=== PATIENT | male | born 1960 | race Caucasian/White ===

== ENCOUNTER → 2019-11-30 17:09 | Outpatient (CLI) | payer OTHER, SELFPAY ==
[2019-11-24 09:11] VITALS: BMI 79.0
--- NOTE | 2019-11-30 17:30 | RAD_ITS ---
HISTORY: large laceration to right lower anterior leg, cellulitis ADDITIONAL HISTORY: None provided. EXAMINATION/TECHNIQUE: XR Tibia/Fibula 2 Views Right Number of images including paperwork: 4 COMPARISON: None FINDINGS: BONES: No acute fracture. Calcaneal enthesophytes. JOINTS: No subluxation. Mild degenerative changes of the knee and ankle. SOFT TISSUES: No distinct foreign body. Soft tissue irregularity involving the anterior mid leg compatible with the provided history of large laceration. RAD/Tibia & Fibula 2 Views IMPRESSION: No acute osseous abnormality. Soft tissue injury. at [id number] Reported and signed by: Brielle Ortiz MD Electronically Signed: Brielel Ortiz MD at 3:37 EDT Tel , Service support ,
[2019-11-30 17:48] LABS: Absolute Neutrophil Count 4.7 X10^3/uL (2.0-7.7); Basophil# 0.08 X10^3/uL; Basophil% 0.9 % (0-1); Eosinophils% 2.3 % (0-5); Hematocrit 47.3 % (40-54); Hemoglobin 16.1 g/dL (13.0-16.5); Lymphocyte % 35.5 % (19-41); Mean Corpuscular Hgb 30.6 pg (27.0-32.0); Mean Corpuscular Volume 89.9 fL (80-94); Mean Platelet Vol. 11.9 fl (6.2-12.0); Monocyte# 0.64 X10^3/uL; Monocyte% 7.3 % (0-10); NRBC Flagged by Analyzer 0 % (0-5); Neutrophil # 4.69 X10^3/uL (2.7-7.7); Neutrophil % 53.8 % (47-70); Platelet Count 225 K/mm3 (150-450); RBC Distribution Width SD 42.3 fl (35.1-43.9); Red Blood Count 5.26 M/mm3 (4.6-6.2); White Blood Count 8.7 K/mm3 (4.4-11.0)
[2019-11-30 17:49] LABS: Erythrocyte Sedimentation Rate 7 mm/hr (0-20)
[2019-11-30 18:52] LABS: ALB/GLOB Ratio 1.1 RATIO (0.9-2.4); AST(SGOT) 42 U/L (15-37); Alanine Aminotransfer ALT/SGPT 81 U/L (16-61); Alkaline Phosphatase 76 U/L (45-117); Anion Gap 8 (5-15); BUN 20 mg/dL (7-18); BUN/Creat Ratio 20.2 RATIO (10-20); CRP < 2.90 mg/L (0.0-3.0); Calcium,Total 9.5 mg/dL (8.5-10.1); Chloride 105 mmol/L (98-107); Creatinine, Serum 0.99 mg/dL (0.70-1.30); EST Glomerular Filtration Rate 83 mL/min (>60); Est Glom Filt Rate - Afr Amer 100 mL/min (>60); Globulin 3.7 g/dL (2.2-4.2); Glucose 166 mg/dL (74-106); Potassium 3.7 mmol/L (3.5-5.1); Protein, Total 7.7 g/dL (6.4-8.2); Sodium Level 138 mmol/L (136-145)
[2019-11-30 19:52] LABS: Prealbumin 45.5 mg/dL (20.0-40.0)
== END ==
PROVIDERS: Referring Provider Nurse Practitioner Family; Visit Provider Nurse Practitioner Family
DX: L03.115 Cellulitis of right lower limb (principal); S81.811A Laceration without foreign body, right lower leg, initial encounter; X58.XXXA Exposure to other specified factors, initial encounter; Y93.9 Activity, unspecified; Y92.9 Unspecified place or not applicable; Y99.9 Unspecified external cause status
CPT/HCPCS: 36415; 73590; 80053; 84134; 85025; 85652; 86140

== ENCOUNTER 2019-12-15 11:30 | Outpatient (RCR) | payer OTHER, SELFPAY ==
[2019-11-24 09:11] VITALS: BP 150/94; PULSE 82; RESP 16; TEMP 36.1; BMI 79.0
--- NOTE | 2019-11-24 12:34 | PCM.WC.HP ---
(1) Laceration of right lower leg Status: Acute Current Visit: Yes Code(s): S81.811A - Laceration without foreign body, right lower leg, initial encounter (2) Contusion of right lower leg Status: Acute Current Visit: Yes Code(s): S80.11XA - Contusion of right lower leg, initial encounter (3) Cellulitis of right lower leg Status: Acute Current Visit: Yes Code(s): L03.115 - Cellulitis of right lower limb History of Present Illness Date of Service: 11/24/19 Chief Complaint: right lower leg wound History of Wound: The patient presents 11/24/2019 for evaluation and treatment of a right lower leg wound. This is a workers comp evaluation. The patient is employed at [employer]. On 11/02/2019, the patient was stepping to a platform while at work when he fell and suffered a laceration to his right lower leg. He was evaluated at [facility], and the laceration was approximated with kavita. He subsequently was seen at [facility] on 11/06/2019 and was placed on light work duty. At his follow-up appointment with [facility] on 11/14/2019, his kavita were removed. Dehiscence of the wound with surrounding erythema was noted, as well as swelling, tenderness and warmth at the wound site. He was started on a 10-day course of Keflex, and wound cultures were obtained. Aerobic cultures were positive for E. coli and he was placed on a course of ampicillin, which he is currently taking. Anaerobic cultures were negative. The patient continues to work his position at [employer]. His job entails prolonged periods of standing. He continues to have redness, warmth, and tenderness of his right lower leg wound and surrounding area. He reports a small amount of serosanguineous drainage from his right lower leg wound. He denies any foul-smelling or purulent drainage from his wound. He has been cleansing the wound and surrounding area daily with soap and water and covering with clean gauze and Coban wrap. The patient denies any fever, chills, nausea, vomiting, or diarrhea. Past Medical History Allergies/Adverse Reactions: Allergies No Known Allergies Allergy (Verified 11/24/19 09:23) Smoking Status: Never smoker Review of Systems Constitutional: Denies: Chills, Fever, Malaise Eyes: Denies: Vision Change HEENT: Denies: Difficulty Hearing, Difficulty Swallowing, Head Aches Cardiovascular: Denies: Chest Pain Respiratory: Denies: Cough, Shortness of Breath, Wheezing Gastrointestinal: Denies: Abdominal Pain, Diarrhea, Nausea, Vomiting Genitourinary: Denies: Dysuria Musculoskeletal: Reports: Leg Pain - At lower leg wound site and surrounding area Skin: Reports: Wounds - Right lower leg wound Neurological: Denies: Numbness, Tingling Hematologic/ Lymphatic: Denies: Easy Bruising, Easy Bleeding, Hx of blood clot - Physical Exam Vital Signs Temp Pulse Resp BP 97 F L 82 16 150/94 H 11/24/19 09:11 11/24/19 09:11 11/24/19 09:11 11/24/19 09:11 General: Alert, Oriented x3, Cooperative, Well developed, Well nourished HEENT: Atraumatic, Normocephalic Oral: Moist Mucosa Neck: Supple, Trachea Midline Lungs: Clear to auscultation, Normal air movement, No rhonchi, No wheeze, No rales Cardiovascular: Regular rate, Regular Rhythm Abdomen: Bowel Sounds Present, Soft Extremities: No clubbing, No cyanosis, Capillary Refill Less than 3 Seconds, Edema - Mild edema of right lower leg and periwound area, Peripheral Pulses Normal Skin: Ulcer/ Wound - Right lower leg wound with subcutaneous layer exposed. There is a moderate to large amount of slough and devitalized tissue present. Coagulated blood expressed from the wound on light palpation. There is undermining present: See measurements below. No tunneling or probing to bone. No purulent or malodorous drainage. There is moderate hailey-wound erythema and mild swelling of the right lower leg. The wound and periwound area are very tender to palpation and debridement., - - There is some absence of hair noted on bilateral lower extremities below mid calf area. Wound Measurements and Assessment WC - Nurse 1 - General Ulcer Measurement Start: 11/24/19 09:10 Freq: Status: Active Protocol: Activity Type Activity Date Activity User E-Sign Co-Sign Detail Recorded Client Recorded Date Recorded By Document 11/24/19 09:11 [facility] [id number] 11/24/19 09:21 [facility] 11/24/19 09:11 Wound Center Nurse 1 [Ulcer Assessment] #1- R BRADFORD POST TRAUMA -Combined with other wound No -Current Size (cm) - Length 5.6 -Current Size (cm) - Width 2.5 -Current Size (cm) - Depth 0.6 -Total Square Cm 14.00 -Date of Last Picture (Recall this 11/24/19 field) -Photo Taken Yes -Epithelialization None Present -Tunneling No -Undermining/Tunneling No -Circular Undermining No -Exudate Type Serosanguineous -Wound Margin Distinct, Outline Attached -Granulation Amt Small (1-33%) -Granulation Quality Red -Slough/Fibrin Yes -Necrosis Amt Large (67-100%) -Necrotic Tissue Type Adherent Slough -Texture (Hailey-wound Skin Appearance) Assessed, Localized Edema ,Scarring -Moisture (Hailey-wound Skin Appearance Assessed ) -Color (Hailey-wound Skin Appearance) Assessed, Erythema -Temperature (Hailey-wound Skin No Abnormality Appearance) (Pt Warm) -Tenderness on Palpation (Hailey-wound Yes Skin Appearance) -Ulcer Cleansing Rinsed/ Irrigated with Saline -Foul Odor after Cleansing No -Anesthetic Used 4% Lidocaine Solution [Edema Assessment] -Lower Limb Edema Present Yes -Right Calf (cm) 42 -Right Ankle (cm) 24 -Left Calf (cm) 41.8 -Left Ankle (cm) 23 WC - Nurse 2 - General Ulcer CM Notes Start: 11/24/19 09:10 Freq: Status: Active Protocol: Activity Type Activity Date Activity User E-Sign Co-Sign Detail Recorded Client Recorded Date Recorded By Document 11/24/19 09:56 PL [id number] 11/24/19 11:06 PL 11/24/19 09:56 Wound Center Nurse 2 [Procedure/Treatment] #1- R BRADFORD POST TRAUMA -Time 10:00 -Correct Patient Yes -Correct Side, Site, Position Yes -Correct Procedure Yes -Procedure Performed Yes -Type of Procedure Debridement -Clinical Debridement Subcutaneous -Tissue Removed Subcutaneous -Post Debridement (cm) - Length 5.9 -Post Debridement (cm) - Width 2.6 -Post Debridement (cm) - Depth 0.6 -Total Square (Post) (cm) 15.34 -Area of Debridement (cm) - Length 5.9 -Area of Debridement (cm) - Width 2.6 -Total Square (Area) (cm) 15.34 -Tunneling No -Undermining/Tunneling Yes -Undermining/Tunneling Starts (O' 2 clock) -Undermining/Tunneling Ends (O'clock) 3 -Maximum Distance (cm) 1.9 -Undermining/Tunneling Starts #2 (O' 3 clock) -Undermining/Tunneling Ends #2 (O' 5 clock) -Maximum Distance #2 (cm) 1.7 -Circular Undermining No -Wound/Ulcer Outcome Not Healed -Ulcer Cleansing Rinsed/ Irrigated with Saline -Foul Odor after Cleansing No -Bioengineered Tissue No -Debridement - Subq, 1st 20sq cm Yes [See Physician Procedure note for Specifics] Pain Scale: 0-10 Numeric [Pain] -Is Patient Pain Free? Yes - Nurse 3 - General Ulcer D/C NN Start: 11/24/19 09:10 Freq: Status: Active Protocol: Activity Type Activity Date Activity User E-Sign Co-Sign Detail Recorded Client Recorded Date Recorded By Document 11/24/19 10:45 [facility] [id number] 11/24/19 10:46 [facility] 11/24/19 10:45 Wound Care Nurse 3 [Wound Dressing] #1- R BRADFORD POST TRAUMA -Ulcer Cleansing Rinsed/ Irrigated with Saline -Foul Odor after Cleansing No -Primary Dressing Applied Other -Other Dressing HYDROGEL TODAY. PT TO P/U SANTYL -Primary Dressing Covered/Secured Dry Gauze & with Roll Gauze, Secured with Tape [Compression Applied] Right -Compression Wrap Surepress ($) [Post Procedure Tolerated] -Treatment Response Procedure Tolerated Well Pain Scale: 0-10 Numeric [Pain] -Is Patient Pain Free? Yes - Visit Discharge [Visit Discharge Information] -Discharge Condition Stable -Ambulatory Status Ambulatory -Transportation Private Auto Musculoskeletal: No Muscle Wasting, Tenderness - Viraj to palpation/debridement Neurological: Cranial nerves II-XII grossly intact Psych/Mental Status: Normal Affect, Appropriate Debridement Note Post-Debridement Measurements/Treatment - Nurse 2 - General Ulcer CM Notes Start: 11/24/19 09:10 Freq: Status: Active Protocol: Activity Type Activity Date Activity User E-Sign Co-Sign Detail Recorded Client Recorded Date Recorded By Document 11/24/19 09:56 PL [id number] 11/24/19 11:06 11/24/19 09:56 Wound Center Nurse 2 #1- R BRADFORD [employer] TRAUMA -Time 10:00 -Correct Patient Yes -Correct Side, Site, Position Yes -Correct Procedure Yes -Procedure Performed Yes -Type of Procedure Debridement -Clinical Debridement Subcutaneous -Tissue Removed Subcutaneous -Post Debridement (cm) - Length 5.9 -Post Debridement (cm) - Width 2.6 -Post Debridement (cm) - Depth 0.6 -Total Square (Post) (cm) 15.34 -Area of Debridement (cm) - Length 5.9 -Area of Debridement (cm) - Width 2.6 -Total Square (Area) (cm) 15.34 -Tunneling No -Undermining/Tunneling Yes -Undermining/Tunneling Starts (O'clock 2 ) -Undermining/Tunneling Ends (O'clock) 3 -Maximum Distance (cm) 1.9 -Undermining/Tunneling Starts #2 (O' 3 clock) -Undermining/Tunneling Ends #2 (O' 5 clock) -Maximum Distance #2 (cm) 1.7 -Circular Undermining No -Wound/Ulcer Outcome Not Healed -Ulcer Cleansing Rinsed/ Irrigated with Saline -Foul Odor after Cleansing No -Bioengineered Tissue No -Debridement - Subq, 1st 20sq cm Yes Pain Scale: 0-10 Numeric Is Patient Pain Free? Yes - Nurse 3 - General Ulcer D/C NN Start: 11/24/19 09:10 Freq: Status: Active Protocol: Activity Type Activity Date Activity User E-Sign Co-Sign Detail Recorded Client Recorded Date Recorded By Document 11/24/19 10:45 [facility] [id number] 11/24/19 10:46 [facility] 11/24/19 10:45 Wound Care Nurse 3 #1- R BRADFORD POST TRAUMA -Ulcer Cleansing Rinsed/ Irrigated with Saline -Foul Odor after Cleansing No -Primary Dressing Applied Other -Other Dressing HYDROGEL TODAY. PT TO P/U SANTYL -Primary Dressing Covered/Secured with Dry Gauze & Roll Gauze, Secured with Tape Right -Compression Wrap Surepress ($) Treatment Response Procedure Tolerated Well Pain Scale: 0-10 Numeric Is Patient Pain Free? Yes WC - Visit Discharge Discharge Condition Stable Ambulatory Status Ambulatory Transportation Private Auto Wound debrided: Right lower leg wound Laterality: Right Type of Debridement: Excisional debridement Anesthesia Used: 4% Lidocaine Solution, 5% Lidocaine Gel Depth: in the subcutaneous layer Percentage of wound debrided: 100 Instrument Used: 7mm curette Tissue Removed: Slough and devitalized tissue Severity: Fat Layer Exposed Amount of bleeding with debridement: Mild Bleeding Controlled with: Compression and gauze Patient did not tolerate procedure well Assessment/Plan Active Problems Laceration of right lower leg (Acute) Contusion of right lower leg (Acute) Cellulitis of right lower leg (Acute) Assessment: 1. Laceration of right lower leg. 2. Cellulitis of right lower leg. 3. Contusion of right lower leg Plan: Debridement performed today in clinic. Hydrogel, gauze, and SurePress applied. Santyl was ordered. At home wound-care instructions: Keep wound clean and dry. Wash daily with antibacterial soap and water, rinse and dry thoroughly. Apply a nickel thick layer of Santyl to the wound base daily after cleaning. Cover with gauze. Compression: Apply SurePress to right leg. Off-loading: Avoid prolonged standing or dangling of feet. When seated, elevate feet at or above waist level. Work restrictions will be given for patient to perform seated work only. Diet: Patient encouraged to increase protein and vitamin C intake while taking caution to avoid high carbohydrate and/or sugar intake. Labs/cultures/imaging: Repeat cultures ordered and collected today, given worsening of wound appearance and large amount of slough and devitalized tissue removed from wound bed. Routine baseline labwork ordered. Vascular (venous and arterial) studies ordered to assess for potential causes of delayed wound healing. Right tibia/fibula x-ray ordered. Follow-up: Return to clinic in 1 week for re-evaluation. Return sooner or report to the emergency room should symptoms worsen, or new symptoms arise. The patient was advised to present to the ER if he develops any fever, chills, nausea/vomiting, increasing redness, swelling, pain, or purulent/foul-smelling drainage from his wound. Office Visits / Consults: [id number] OV L4 New [id number]: [id number] Ivy subq tissue 20 sq cm/<
[2019-12-01 10:30] VITALS: BP 172/89; PULSE 92; RESP 16; TEMP 35.9; BMI 79.0
--- NOTE | 2019-12-01 15:55 | PCM.WC.PN ---
(1) Laceration of right lower leg Status: Acute Current Visit: Yes Code(s): S81.811A - Laceration without foreign body, right lower leg, initial encounter (2) Contusion of right lower leg Status: Acute Current Visit: Yes Code(s): S80.11XA - Contusion of right lower leg, initial encounter (3) Cellulitis of right lower leg Status: Acute Current Visit: Yes Code(s): L03.115 - Cellulitis of right lower limb Type of Wound Date of Service: 12/01/19 Chief Complaint: right lower leg wound History of Wound: The patient presents 11/24/2019 for evaluation and treatment of a right lower leg wound. This is a workers comp evaluation. The patient is employed at [employer]. On 11/02/2019, the patient was stepping to a platform while at work when he fell and suffered a laceration to his right lower leg. He was evaluated at [facility], and the laceration was approximated with kavita. He subsequently was seen at [facility] on 11/06/2019 and was placed on light work duty. At his follow-up appointment with [facility] on 11/14/2019, his kavita were removed. Dehiscence of the wound with surrounding erythema was noted, as well as swelling, tenderness and warmth at the wound site. He was started on a 10-day course of Keflex, and wound cultures were obtained. Aerobic cultures were positive for E. coli and he was placed on a course of ampicillin, which he is currently taking. Anaerobic cultures were negative. The patient continues to work his position at [employer]. His job entails prolonged periods of standing. He continues to have redness, warmth, and tenderness of his right lower leg wound and surrounding area. He reports a small amount of serosanguineous drainage from his right lower leg wound. He denies any foul-smelling or purulent drainage from his wound. He has been cleansing the wound and surrounding area daily with soap and water and covering with clean gauze and Coban wrap. The patient denies any fever, chills, nausea, vomiting, or diarrhea. Progress of Wound: Patient's wound has improved in size and appearance since last visit. He reports compliance with the use of Santyl and compression. He also reports compliance with work restrictions which limit him to seated work only. His wound culture was positive for Morganella; ampicillin was discontinued and patient was started on Levaquin 500 mg daily x10 days. He is tolerating this medication well. The patient denies any fever, chills, nausea, vomiting, or diarrhea. Denies any signs of infection, including increasing pain, redness, swelling, or drainage from affected area. Labs collected 11/30/2019 were significant for glucose 166, AST 42, ALT 81, prealbumin 45.5. CBC with differential, ESR, and CRP were normal. Tib-fib x-ray completed 11/30/2019 was negative for acute osseous abnormality. - Physical Exam Vital Signs Temp Pulse Resp BP 96.7 F L 92 16 172/89 H 12/01/19 10:30 12/01/19 10:30 12/01/19 10:30 12/01/19 10:30 General: Alert, Oriented x3, Cooperative, No apparent distress HEENT: Atraumatic, Normocephalic Oral: Moist Mucosa Extremities: No clubbing, No cyanosis, Capillary Refill Less than 3 Seconds, Edema - Trace edema of bilateral lower extremities, Peripheral Pulses Normal Skin: Ulcer/ Wound - Right lower leg wound with subcutaneous layer exposed. There is a small to moderate amount of slough and devitalized tissue present. Undermining has greatly improved, though is still present. No tunneling or probing to bone. No purulent or malodorous drainage. There is mild periwound erythema. Periwound tenderness has improved significantly from last week. Wound Measurements and Assessment WC - Nurse 1 - General Ulcer Measurement Start: 11/24/19 09:10 Freq: Status: Active Protocol: Activity Type Activity Date Activity User E-Sign Co-Sign Detail Recorded Client Recorded Date Recorded By Document 12/01/19 10:30 [id number] 12/01/19 10:47 12/01/19 10:30 Wound Center Nurse 1 [Ulcer Assessment] #1- R LOCO POST TRAUMA -Combined with other wound No -Current Size (cm) - Length 5.6 -Current Size (cm) - Width 2.0 -Current Size (cm) - Depth 0.5 -Total Square Cm 11.20 -Photo Taken No -Epithelialization Small 1-33% -Tunneling No -Undermining/Tunneling No -Circular Undermining No -Exudate Amt Medium -Exudate Type Serosanguineous -Wound Margin Flat & Intact -Granulation Amt Medium (34-66%) -Granulation Quality Red -Slough/Fibrin Yes -Necrosis Amt Medium (34-66%) -Necrotic Tissue Type Adherent Slough -Structure Exposed N/A -Texture (Hailey-wound Skin Appearance) Assessed, Localized Edema -Moisture (Hailey-wound Skin Appearance No Abnormality, ) Dry/Scaly -Color (Hailey-wound Skin Appearance) Assessed -Temperature (Hailey-wound Skin No Abnormality Appearance) (Pt Warm) -Tenderness on Palpation (Hailey-wound No Skin Appearance) -Ulcer Cleansing Rinsed/ Irrigated with Saline -Foul Odor after Cleansing No -Anesthetic Used 4% Lidocaine Solution [Edema Assessment] -Lower Limb Edema Present Yes -Right Calf (cm) 41.0 -Right Ankle (cm) 23.0 EMILY - Nurse 2 - General Ulcer CM Notes Start: 11/24/19 09:10 Freq: Status: Active Protocol: Activity Type Activity Date Activity User E-Sign Co-Sign Detail Recorded Client Recorded Date Recorded By Document 12/01/19 13:46 [email or web address] [id number] 12/01/19 13:52 PL 12/01/19 13:46 Wound Center Nurse 2 [Procedure/Treatment] #1- R LOCO POST TRAUMA -Time 11:19 -Correct Patient Yes -Correct Side, Site, Position Yes -Correct Procedure Yes -Procedure Performed Yes -Type of Procedure Debridement -Clinical Debridement Subcutaneous -Tissue Removed Subcutaneous -Post Debridement (cm) - Length 5.8 -Post Debridement (cm) - Width 2.2 -Post Debridement (cm) - Depth 0.9 -Total Square (Post) (cm) 12.76 -Area of Debridement (cm) - Length 5.8 -Area of Debridement (cm) - Width 2.2 -Total Square (Area) (cm) 12.76 -Tunneling No -Undermining/Tunneling No -Circular Undermining No -Wound/Ulcer Outcome Not Healed -Ulcer Cleansing Rinsed/ Irrigated with Saline -Foul Odor after Cleansing No -Bioengineered Tissue No -Debridement - Subq, 1st 20sq cm No [See Physician Procedure note for Specifics] Pain Scale: 0-10 Numeric [Pain] -Is Patient Pain Free? Yes EMILY - Nurse 3 - General Ulcer D/C NN Start: 09/04/20 09:10 Freq: Status: Active Protocol: Activity Type Activity Date Activity User E-Sign Co-Sign Detail Recorded Client Recorded Date Recorded By Document 12/01/19 12:06 [id number] 12/01/19 12:07 12/01/19 12:06 Wound Care Nurse 3 [Wound Dressing] #1- R LOCO POST TRAUMA -Ulcer Cleansing Rinsed/ Irrigated with Saline -Foul Odor after Cleansing No -Primary Dressing Applied C Hydrogel ($) -Primary Dressing Covered/Secured Dry Gauze & with Roll Gauze, Secured with Tape Pain Scale: 0-10 Numeric [Pain] -Is Patient Pain Free? Yes WC - Visit Discharge [Visit Discharge Information] -Discharge Condition Stable -Ambulatory Status Ambulatory -Transportation Private Auto -Medication Reconcilliation completed Yes & provided to patient/care provider -Clinical Summary of Care Provided Yes Musculoskeletal: Tenderness - To palpation/manipulation of wound Psych/Mental Status: Normal Affect, Appropriate Debridement Note Post-Debridement Measurements/Treatment WC - Nurse 2 - General Ulcer CM Notes Start: 11/24/19 09:10 Freq: Status: Active Protocol: Activity Type Activity Date Activity User E-Sign Co-Sign Detail Recorded Client Recorded Date Recorded By Document 11/24/19 09:56 PL [id number] 11/24/19 11:06 PL Document 12/01/19 13:46 [id number] 12/01/19 13:52 PL 11/24/19 12/01/19 09:56 13:46 Wound Center Nurse 2 #1- R LOCO POST TRAUMA -Time 10:00 11:19 -Correct Patient Yes Yes -Correct Side, Site, Position Yes Yes -Correct Procedure Yes Yes -Procedure Performed Yes Yes -Type of Procedure Debridement Debridement -Clinical Debridement Subcutaneous Subcutaneous -Tissue Removed Subcutaneous Subcutaneous -Post Debridement (cm) - Length 5.9 5.8 -Post Debridement (cm) - Width 2.6 2.2 -Post Debridement (cm) - Depth 0.6 0.9 -Total Square (Post) (cm) 15.34 12.76 -Area of Debridement (cm) - Length 5.9 5.8 -Area of Debridement (cm) - Width 2.6 2.2 -Total Square (Area) (cm) 15.34 12.76 -Tunneling No No -Undermining/Tunneling Yes No -Undermining/Tunneling Starts (O'clock 2 ) -Undermining/Tunneling Ends (O'clock) 3 -Maximum Distance (cm) 1.9 -Undermining/Tunneling Starts #2 (O' 3 clock) -Undermining/Tunneling Ends #2 (O' 5 clock) -Maximum Distance #2 (cm) 1.7 -Circular Undermining No No -Wound/Ulcer Outcome Not Healed Not Healed -Ulcer Cleansing Rinsed/ Rinsed/ Irrigated with Irrigated with Saline Saline -Foul Odor after Cleansing No No -Bioengineered Tissue No No -Debridement - Subq, 1st 20sq cm Yes No Pain Scale: 0-10 Numeric Is Patient Pain Free? Yes Yes - Nurse 3 - General Ulcer D/C NN Start: 11/24/19 09:10 Freq: Status: Active Protocol: Activity Type Activity Date Activity User E-Sign Co-Sign Detail Recorded Client Recorded Date Recorded By Document 11/24/19 10:45 [facility] [id number] 11/24/19 10:46 [facility] Document 12/01/19 12:06 [id number] 12/01/19 12:07 11/24/19 12/01/19 10:45 12:06 Wound Care Nurse 3 #1- R LOCO POST TRAUMA -Ulcer Cleansing Rinsed/ Rinsed/ Irrigated with Irrigated with Saline Saline -Foul Odor after Cleansing No No -Primary Dressing Applied Other C Hydrogel ($) -Other Dressing HYDROGEL TODAY. PT TO P/U SANTYL -Primary Dressing Covered/Secured with Dry Gauze & Dry Gauze & Roll Gauze, Roll Gauze, Secured with Secured with Tape Tape Right -Compression Wrap Surepress ($) Treatment Response Procedure Tolerated Well Pain Scale: 0-10 Numeric Is Patient Pain Free? Yes Yes - Visit Discharge Discharge Condition Stable Stable Ambulatory Status Ambulatory Ambulatory Transportation Private Auto Private Auto Medication Reconcilliation completed & Yes provided to patient/care provider Clinical Summary of Care Provided Yes Wound debrided: Right loco Laterality: Right Type of Debridement: Excisional debridement Anesthesia Used: 5% Lidocaine Gel Depth: in the subcutaneous layer Percentage of wound debrided: 100 Instrument Used: 7mm curette Tissue Removed: Slough and devitalized tissue Severity: Fat Layer Exposed Amount of bleeding with debridement: Mild Bleeding Controlled with: Pressure Patient tolerated procedure well Assessment/Plan Active Problems Laceration of right lower leg (Acute) Contusion of right lower leg (Acute) Cellulitis of right lower leg (Acute) Assessment: 1. Laceration of right lower leg. 2. Cellulitis of right lower leg. 3. Contusion of right lower leg Plan: Debridement performed today in clinic. Hydrogel, gauze, and SurePress applied. Patient has Santyl at home; refills will be sent. At home wound-care instructions: Keep wound clean and dry. Wash daily with antibacterial soap and water, rinse and dry thoroughly. Apply a nickel thick layer of Santyl to the wound base daily after cleaning. Cover with gauze. Compression: Apply SurePress to right leg. Off-loading: Avoid prolonged standing or dangling of feet. When seated, elevate feet at or above waist level. Work restrictions will be continued for patient to perform seated work only. Diet: Patient encouraged to increase protein and vitamin C intake while taking caution to avoid high carbohydrate and/or sugar intake. Labs/cultures/imaging: Wound cultures were positive for Morganella. Ampicillin was discontinued and patient was started on a 10-day course of Levaquin 500 mg daily. He is tolerating this well. Patient instructed to finish antibiotics as prescribed. Lab results reviewed as noted above. Vascular (venous and arterial) studies have not yet been completed. Right tibia/fibula x-ray was negative for acute osseous abnormality. Follow-up: Return to clinic in 2 weeks for re-evaluation. Return sooner or report to the emergency room should symptoms worsen, or new symptoms arise. The patient was advised to present to the ER if he develops any fever, chills, nausea/vomiting, increasing redness, swelling, pain, or purulent/foul-smelling drainage from his wound. Note: [employer] speech recognition knowledge architect software was used to create portions of this document. Sound-alike and misspelled words, as well as other knowledge architect errors may be contained in the documentation. [id number]: [id number] Ivy subq tissue 20 sq cm/<
--- NOTE | 2019-12-15 09:06 | ART_ITS ---
Reason For Study: CELLULITIS Procedure A bilateral lower extremity continuous wave Doppler with analog waveform analysis,segmental pressures,and ankle brachial indexes without exercise. Left Segmental Pressures Left brachial= 165mmHg. Left posterior tibial artery = 213mmHg. Left dorsalis pedis artery = 197mmHg. Left digit = 127 mmHg. The left dorsalis pedis waveforms are triphasic. The left posterior tibial artery waveforms are triphasic. Right Segmental Pressures Right brachial= 177mmHg. Right posterior tibial artery = 215mmHg. Right dorsalis pedis artery = 218mmHg. Right digit = 158 mmHg. The right dorsalis pedis waveforms are triphasic. The right posterior tibial artery waveforms are triphasic. Indices The right ankle brachial index by the dorsalis pedis is 1.11. The right ankle brachial index by the posterior tibial artery is 1.2. The right digital-brachial index is .72. The left ankle brachial index by the dorsalis pedis is 1.23. The left ankle brachial index by the posterior tibial artery is 1.21. The left digital-brachial index is .89. Interpretation Summary Triphasic Doppler waveforms are noted at ankle level bilaterally. Pulse-volume recordings appear satisfactory at all levels bilaterally, including low-thigh, calf, ankle, and digital levels bilaterally. Resting ankle-brachial indices are normal bilaterally. Digital-brachial indices are normal bilaterally. There is no evidence of significant arterial occlusive disease in the lower extremities bilaterally. Ordering Physician: Samantha Braden Referring Physician: Geoffrey Rowland Performed By: TERRY LEONARDO RDCS
[2019-12-15 11:47] VITALS: BP 155/111; PULSE 90; RESP 16; TEMP 36.6; BMI 79.0
[2019-12-15 12:19] VITALS: BP 147/94; PULSE 87; RESP 16
--- NOTE | 2019-12-15 12:55 | PCM.WC.PN ---
(1) Laceration of right lower leg Status: Acute Current Visit: Yes Code(s): S81.811A - Laceration without foreign body, right lower leg, initial encounter (2) Contusion of right lower leg Status: Acute Current Visit: Yes Code(s): S80.11XA - Contusion of right lower leg, initial encounter (3) Cellulitis of right lower leg Status: Acute Current Visit: Yes Code(s): L03.115 - Cellulitis of right lower limb Type of Wound Date of Service: 12/15/19 Chief Complaint: right lower leg wound History of Wound: The patient presented 11/24/2019 for evaluation and treatment of a right lower leg wound. This is a workers comp evaluation. The patient is employed at [employer]. On 11/02/2019, the patient was stepping to a platform while at work when he fell and suffered a laceration to his right lower leg. He was evaluated at [facility], and the laceration was approximated with kavita. He subsequently was seen at [facility] on 11/06/2019 and was placed on light work duty. At his follow-up appointment with [facility] on 11/14/2019, his kavita were removed. Dehiscence of the wound with surrounding erythema was noted, as well as swelling, tenderness and warmth at the wound site. He was started on a 10-day course of Keflex, and wound cultures were obtained. Aerobic cultures were positive for E. coli and he was placed on a course of ampicillin. The patient continues to work his position at [employer]. His job entails prolonged periods of standing. He was placed on restrictions for seated work only. On initial presentation, he continued to have redness, warmth, and tenderness of his right lower leg wound and surrounding area. Repeat wound cultures were collected 11/24/19 and were positive for Morganella; ampicillin was discontinued and patient was started on Levaquin 500 mg daily x10 days. Anaerobic cultures were negative. Lower extremity arterial studies were completed 12/15/2019 and showed the following: Right CORBY (PT) 1.20, (DP) 1.11, DBI 0.72; left CORBY (PT) 1.21, (DP) 1.23, DBI 0.89. He had been cleansing the wound and surrounding area daily with soap and water and covering with clean gauze and Coban wrap at the time of initial evaluation. He was started on Santyl after initial evaluation. The patient denies any fever, chills, nausea, vomiting, or diarrhea. He denies any foul-smelling or purulent drainage from his wound. Progress of Wound: Patient's wound has improved in size and appearance since last visit. He reports compliance with the use of Santyl and compression (Surepress). He also reports compliance with work restrictions which limit him to seated work only. He completed a 10 day course of Levaquin. The patient denies any fever, chills, nausea, vomiting, or diarrhea. Denies any signs of infection, including increasing pain, redness, swelling, or drainage from affected area. Labs collected 11/30/2019 were significant for glucose 166, AST 42, ALT 81, prealbumin 45.5. CBC with differential, ESR, and CRP were normal. Tib-fib x-ray completed 11/30/2019 was negative for acute osseous abnormality. - Physical Exam Vital Signs Temp Pulse Resp BP 98 F 87 16 147/94 H 12/15/19 11:47 12/15/19 12:19 12/15/19 12:19 12/15/19 12:19 General: Alert, Oriented x3, Cooperative, No apparent distress HEENT: Atraumatic, Normocephalic Oral: Moist Mucosa Lungs: Normal air movement Abdomen: Soft, Non-Distended Extremities: No clubbing, No cyanosis, No edema, Capillary Refill Less than 3 Seconds Skin: Ulcer/ Wound - Right lower leg wound with subcutaneous layer exposed. There is a small amount of slough in devitalized tissue present. Undermining has resolved. No tunneling or probing to bone. No purulent or malodorous drainage. There is mild periwound erythema. The wound tenderness has improved significantly. Wound Measurements and Assessment WC - Nurse 1 - General Ulcer Measurement Start: 11/24/19 09:10 Freq: Status: Active Protocol: Activity Type Activity Date Activity User E-Sign Co-Sign Detail Recorded Client Recorded Date Recorded By Document 12/15/19 11:47 BMF [id number] 12/15/19 11:53 BMF 12/15/19 11:47 Wound Center Nurse 1 [Ulcer Assessment] #1- R LOCO POST TRAUMA -Combined with other wound No -Current Size (cm) - Length 4.9 -Current Size (cm) - Width 1.2 -Current Size (cm) - Depth 0.4 -Total Square Cm 5.88 -Photo Taken No -Epithelialization None Present -Tunneling No -Undermining/Tunneling No -Circular Undermining No -Exudate Amt Medium -Exudate Type Serosanguineous -Wound Margin Distinct, Outline Attached -Granulation Amt Medium (34-66%) -Granulation Quality Red -Slough/Fibrin Yes -Necrosis Amt Medium (34-66%) -Necrotic Tissue Type Adherent Slough -Texture (Hailey-wound Skin Appearance) Assessed, Scarring -Moisture (Hailey-wound Skin Appearance Assessed ) -Color (Hailey-wound Skin Appearance) Assessed -Temperature (Hailey-wound Skin No Abnormality Appearance) (Pt Warm) -Tenderness on Palpation (Hailey-wound No Skin Appearance) -Ulcer Cleansing Rinsed/ Irrigated with Saline -Foul Odor after Cleansing No -Anesthetic Used 4% Lidocaine Solution [Edema Assessment] -Lower Limb Edema Present Yes -Right Calf (cm) 40.8 -Right Ankle (cm) 24.1 WC - Nurse 2 - General Ulcer CM Notes Start: 11/24/19 09:10 Freq: Status: Active Protocol: Activity Type Activity Date Activity User E-Sign Co-Sign Detail Recorded Client Recorded Date Recorded By Document 12/15/19 12:46 YULISA [id number] 12/15/19 12:47 YULISA 12/15/19 12:46 Wound Center Nurse 2 [Procedure/Treatment] #1- R LOCO POST TRAUMA -Time 11:58 -Correct Patient Yes -Correct Side, Site, Position Yes -Correct Procedure Yes -Procedure Performed Yes -Type of Procedure Debridement -Clinical Debridement Subcutaneous -Tissue Removed Subcutaneous -Post Debridement (cm) - Length 5 -Post Debridement (cm) - Width 1.5 -Post Debridement (cm) - Depth 0.7 -Total Square (Post) (cm) 7.5 -Area of Debridement (cm) - Length 5 -Area of Debridement (cm) - Width 1.5 -Total Square (Area) (cm) 7.5 -Wound/Ulcer Outcome Not Healed -Ulcer Cleansing Rinsed/ Irrigated with Saline -Foul Odor after Cleansing No -Bioengineered Tissue No -Debridement - Subq, 1st 20sq cm Yes [See Physician Procedure note for Specifics] Pain Scale: 0-10 Numeric [Pain] -Is Patient Pain Free? Yes - Nurse 3 - General Ulcer D/C NN Start: 11/24/19 09:10 Freq: Status: Active Protocol: Activity Type Activity Date Activity User E-Sign Co-Sign Detail Recorded Client Recorded Date Recorded By Document 12/15/19 12:19 [facility] [id number] 12/15/19 12:19 [facility] 12/15/19 12:19 Wound Care Nurse 3 [Wound Dressing] #1- R LOCO POST TRAUMA -Ulcer Cleansing Rinsed/ Irrigated with Saline -Foul Odor after Cleansing No -Primary Dressing Applied Other -Other Dressing hydrogel -Primary Dressing Covered/Secured Dry Gauze & with Roll Gauze, Secured with Tape [Compression Applied] Right -Compression Wrap Surepress ($) Vital Signs [Pulse] -Pulse Rate (60-100) 87 -Pulse Location Monitor [Respirations] -Respiratory Rate (12-18) 16 -Respiratory rate source Observation -Oxygen Delivery Method Room Air [Blood Pressure] -Blood Pressure (90/60-120/80) 147/94 H -Blood Pressure Mean (mm Hg) 111 -Source Monitor -Position Sitting -Blood Pressure Location Right Arm Pain Scale: 0-10 Numeric [Pain] -Is Patient Pain Free? Yes - Visit Discharge [Visit Discharge Information] -Discharge Condition Stable -Ambulatory Status Ambulatory -Transportation Private Auto Musculoskeletal: Tenderness - On palpation/manipulation of wound Psych/Mental Status: Normal Affect, Appropriate Debridement Note Post-Debridement Measurements/Treatment - Nurse 2 - General Ulcer CM Notes Start: 11/24/19 09:10 Freq: Status: Active Protocol: Activity Type Activity Date Activity User E-Sign Co-Sign Detail Recorded Client Recorded Date Recorded By Document 11/24/19 09:56 PL [email or web address] 11/24/19 11:06 PL Document 12/01/19 13:46 PL [id number] 12/01/19 13:52 PL Document 12/15/19 12:46 PL [id number] 12/15/19 12:47 PL 11/24/19 12/01/19 12/15/19 09:56 13:46 12:46 Wound Center Nurse 2 #1- R LOCO POST TRAUMA -Time 10:00 11:19 11:58 -Correct Patient Yes Yes Yes -Correct Side, Site, Position Yes Yes Yes -Correct Procedure Yes Yes Yes -Procedure Performed Yes Yes Yes -Type of Procedure Debridement Debridement Debridement -Clinical Debridement Subcutaneous Subcutaneous Subcutaneous -Tissue Removed Subcutaneous Subcutaneous Subcutaneous -Post Debridement (cm) - Length 5.9 5.8 5 -Post Debridement (cm) - Width 2.6 2.2 1.5 -Post Debridement (cm) - Depth 0.6 0.9 0.7 -Total Square (Post) (cm) 15.34 12.76 7.5 -Area of Debridement (cm) - Length 5.9 5.8 5 -Area of Debridement (cm) - Width 2.6 2.2 1.5 -Total Square (Area) (cm) 15.34 12.76 7.5 -Tunneling No No -Undermining/Tunneling Yes No -Undermining/Tunneling Starts (O'clock 2 ) -Undermining/Tunneling Ends (O'clock) 3 -Maximum Distance (cm) 1.9 -Undermining/Tunneling Starts #2 (O' 3 clock) -Undermining/Tunneling Ends #2 (O' 5 clock) -Maximum Distance #2 (cm) 1.7 -Circular Undermining No No -Wound/Ulcer Outcome Not Healed Not Healed Not Healed -Ulcer Cleansing Rinsed/ Rinsed/ Rinsed/ Irrigated with Irrigated with Irrigated with Saline Saline Saline -Foul Odor after Cleansing No No No -Bioengineered Tissue No No No -Debridement - Subq, 1st 20sq cm Yes Yes Yes Pain Scale: 0-10 Numeric Is Patient Pain Free? Yes Yes Yes WC - Nurse 3 - General Ulcer D/C NN Start: 11/24/19 09:10 Freq: Status: Active Protocol: Activity Type Activity Date Activity User E-Sign Co-Sign Detail Recorded Client Recorded Date Recorded By Document 11/24/19 10:45 [facility] [id number] 11/24/19 10:46 [facility] Document 12/01/19 12:06 [id number] 12/01/19 12:07 Document 12/15/19 12:19 [facility] [id number] 12/15/19 12:19 [facility] 11/24/19 12/01/19 12/15/19 10:45 12:06 12:19 Wound Care Nurse 3 #1- R LOCO POST TRAUMA -Ulcer Cleansing Rinsed/ Rinsed/ Rinsed/ Irrigated with Irrigated with Irrigated with Saline Saline Saline -Foul Odor after Cleansing No No No -Primary Dressing Applied Other C Hydrogel ($) Other -Other Dressing HYDROGEL TODAY. hydrogel PT TO P/U SANTYL -Primary Dressing Covered/Secured with Dry Gauze & Dry Gauze & Dry Gauze & Roll Gauze, Roll Gauze, Roll Gauze, Secured with Secured with Secured with Tape Tape Tape Right -Compression Wrap Surepress ($) Surepress ($) Treatment Response Procedure Tolerated Well Pain Scale: 0-10 Numeric Is Patient Pain Free? Yes Yes Yes Vital Signs Pulse Rate (60-100) 87 Pulse Location Monitor Respiratory Rate (12-18) 16 Respiratory rate source Observation Oxygen Delivery Method Room Air Blood Pressure (90/60-120/80) 147/94 H Blood Pressure Mean (mm Hg) 111 Source Monitor Position Sitting Blood Pressure Location Right Arm WC - Visit Discharge Discharge Condition Stable Stable Stable Ambulatory Status Ambulatory Ambulatory Ambulatory Transportation Private Auto Private Auto Private Auto Medication Reconcilliation completed & Yes provided to patient/care provider Clinical Summary of Care Provided Yes Wound debrided: Right loco Laterality: Right Type of Debridement: Excisional debridement Anesthesia Used: 5% Lidocaine Gel Depth: in the subcutaneous layer Percentage of wound debrided: 100 Instrument Used: 5mm curette Tissue Removed: Slough and devitalized tissue Severity: Fat Layer Exposed Amount of bleeding with debridement: Mild Bleeding Controlled with: Pressure Patient tolerated procedure well Assessment/Plan Active Problems Laceration of right lower leg (Acute) Contusion of right lower leg (Acute) Cellulitis of right lower leg (Acute) Assessment: 1. Laceration of right lower leg. 2. Cellulitis of right lower leg. 3. Contusion of right lower leg Plan: Debridement performed today in clinic. Hydrogel, gauze, and SurePress applied. Patient has Santyl at home; does not need a refill at this time. At home wound-care instructions: Keep wound clean and dry. Wash daily with antibacterial soap and water, rinse and dry thoroughly. Apply a nickel thick layer of Santyl to the wound base daily after cleaning. Cover with gauze. Compression: Apply SurePress to right leg. Off-loading: Avoid prolonged standing or dangling of feet. When seated, elevate feet at or above waist level. Work restrictions will be continued for patient to perform seated work only. Diet: Patient encouraged to increase protein and vitamin C intake while taking caution to avoid high carbohydrate and/or sugar intake. Labs/cultures/imaging: Wound cultures were positive for Morganella. Ampicillin was discontinued and patient was started on a 10-day course of Levaquin 500 mg daily which has since been completed. Lab results reviewed as noted above. Lower extremity arterial studies were completed 12/15/2019 and showed the following: Right CORBY (PT) 1.20, (DP) 1.11, DBI 0.72; left CORBY (PT) 1.21, (DP) 1.23, DBI 0.89. Tibia/fibula x-ray was negative for acute osseous abnormality. Follow-up: Return to clinic in 1 week for re-evaluation. Return sooner or report to the emergency room should symptoms worsen, or new symptoms arise. The patient was advised to present to the ER if he develops any fever, chills, nausea/vomiting, increasing redness, swelling, pain, or purulent/foul-smelling drainage from his wound. Note: [employer]point speech recognition rn hyperbaric software was used to create portions of this document. Sound-alike and misspelled words, as well as other rn hyperbaric errors may be contained in the documentation. 111xxx-113xx: [id number] Ivy subq tissue 20 sq cm/<
== END 2019-12-20 23:59 ==
LOC: WC 11:30
PROVIDERS: Referring Provider Family Medicine; Visit Provider Nurse Practitioner Family
CPT/HCPCS: 11042; 87070; 87075; 87077; 87186; 87205; 93923; 99203; G0463

== ENCOUNTER 2020-01-19 09:30 | Outpatient (RCR) | payer OTHER, SELFPAY ==
[2019-12-21 00:18] VITALS: BP 147/94; PULSE 87; RESP 16; TEMP 36.6
[2019-12-22 10:05] VITALS: BP 164/99; PULSE 96; RESP 18; TEMP 36.3; BMI 79.0
[2019-12-22 11:41] VITALS: BP 136/84; PULSE 86; TEMP 36.5
--- NOTE | 2019-12-22 13:09 | PN.PCM_ITS ---
(1) Laceration of right lower leg Status: Chronic Current Visit: Yes Code(s): S81.811A - Laceration without foreign body, right lower leg, initial encounter (2) Contusion of right lower leg Status: Acute Current Visit: Yes Code(s): S80.11XA - Contusion of right lower leg, initial encounter (3) Cellulitis of right lower leg Status: Acute Current Visit: No Code(s): L03.115 - Cellulitis of right lower limb Type of Wound Date of Service: 12/22/19 Chief Complaint: right lower leg wound History of Wound: The patient presented 11/24/2019 for evaluation and treatment of a right lower leg wound. This is a workers comp evaluation. The patient is employed at [employer]. On 11/02/2019, the patient was stepping to a platform while at work when he fell and suffered a laceration to his right lower leg. He was evaluated at [facility], and the laceration was approximated with kavita. He subsequently was seen at [facility] on 11/06/2019 and was placed on light work duty. At his follow-up appointment with [facility] on 11/14/2019, his kavita were removed. Dehiscence of the wound with surrounding erythema was noted, as well as swelling, tenderness and warmth at the wound site. He was started on a 10-day course of Keflex, and wound cultures were obtained. Aerobic cultures were positive for E. coli and he was placed on a course of ampicillin. The patient continues to work his position at [employer]. His job entails prolonged periods of standing. He was placed on restrictions for seated work only. On initial presentation, he continued to have redness, warmth, and tenderness of his right lower leg wound and surrounding area. Repeat wound cultures were collected 11/24/19 and were positive for Morganella; ampicillin was discontinued and patient was started on Levaquin 500 mg daily x10 days. Anaerobic cultures were negative. Lower extremity arterial studies were completed 12/15/2019 and showed the following: Right CORBY (PT) 1.20, (DP) 1.11, DBI 0.72; left CORBY (PT) 1.21, (DP) 1.23, DBI 0.89. Labs collected 11/30/2019 were significant for glucose 166, AST 42, ALT 81, prealbumin 45.5. CBC with differential, ESR, and CRP were normal. Tib-fib x-ray completed 11/30/2019 was negative for acute osseous abnormality. He had been cleansing the wound and surrounding area daily with soap and water and covering with clean gauze and Coban wrap at the time of initial evaluation. He was started on Santyl after initial evaluation. The patient denied any fever, chills, nausea, vomiting, or diarrhea. He denied any foul-smelling or purulent drainage from his wound. Progress of Wound: Patient's wound has improved in size and appearance since last visit. He reports compliance with the use of Santyl and compression (Surepress). He also reports compliance with work restrictions which limit him to seated work only. He completed a 10 day course of Levaquin. The patient denies any fever, chills, nausea, vomiting, or diarrhea. Denies any signs of infection, including increasing pain, redness, swelling, or drainage from affected area. - Physical Exam Vital Signs Temp Pulse Resp BP 97.7 F L 86 18 136/84 H 12/22/19 11:41 12/22/19 11:41 12/22/19 10:05 12/22/19 11:41 General: Alert, Cooperative, No apparent distress HEENT: Atraumatic, Normocephalic Oral: Moist Mucosa Neck: Supple, Trachea Midline Lungs: Normal air movement Cardiovascular: Regular rate Extremities: No clubbing, No cyanosis, No edema, Capillary Refill Less than 3 Seconds Skin: Ulcer/ Wound - Right lower leg wound with subcutaneous layer exposed. There is no tunneling, undermining, or probing to bone. There is a small amount of slough and devitalized tissue present. There is trace periwound erythema. Wound tenderness has improved significantly. There is no periwound warmth and no purulent/malodorous drainage from wound. Wound Measurements and Assessment WC - Nurse 1 - General Ulcer Measurement Start: 12/22/19 10:05 Freq: Status: Active Protocol: Activity Type Activity Date Activity User E-Sign Co-Sign Detail Recorded Client Recorded Date Recorded By Document 12/22/19 10:05 DL [id number] 12/22/19 10:11 DL 12/22/19 10:05 Wound Center Nurse 1 [Ulcer Assessment] #1- R LOCO POST TRAUMA -Current Size (cm) - Length 3.8 -Current Size (cm) - Width 0.8 -Current Size (cm) - Depth 0.4 -Total Square Cm 3.04 -Photo Taken No -Exudate Amt Small -Exudate Type Serosanguineous -Wound Margin Distinct, Outline Attached -Granulation Amt Medium (34-66%) -Granulation Quality [place] -Necrosis Amt Medium (34-66%) -Necrotic Tissue Type Adherent Slough -Structure Exposed N/A -Texture (Hailey-wound Skin Appearance) Scarring -Moisture (Hailey-wound Skin Appearance No Abnormality ) -Color (Hailey-wound Skin Appearance) No Abnormality -Temperature (Hailey-wound Skin No Abnormality Appearance) (Pt Warm) -Tenderness on Palpation (Hailey-wound No Skin Appearance) -Ulcer Cleansing Rinsed/ Irrigated with Saline -Foul Odor after Cleansing No -Anesthetic Used 4% Lidocaine Solution [Edema Assessment] -Right Calf (cm) 40.6 -Right Ankle (cm) 23.2 WC - Nurse 3 - General Ulcer D/C NN Start: 12/22/19 10:05 Freq: Status: Active Protocol: Activity Type Activity Date Activity User E-Sign Co-Sign Detail Recorded Client Recorded Date Recorded By Document 12/22/19 11:41 DL [id number] 12/22/19 11:43 DL 12/22/19 11:41 Wound Care Nurse 3 [Wound Dressing] #1- R LOCO POST TRAUMA -Ulcer Cleansing Rinsed/ Irrigated with Saline -Foul Odor after Cleansing No -Other Dressing nugel -Primary Dressing Covered/Secured Dry Gauze & with Roll Gauze, Secured with Tape [Compression Applied] Right -Compression Wrap Surepress ($) [Post Procedure Tolerated] -Treatment Response Procedure Tolerated Well Vital Signs [Temperature Protocol: VS] -Temperature (97.8 F-99.1 F) 97.7 F L -Temperature Source Temporal [Pulse] -Pulse Rate (60-100) 86 -Pulse Location Apical [Blood Pressure] -Blood Pressure (90/60-120/80) 136/84 H -Blood Pressure Mean (mm Hg) 101 -Source Monitor Pain Scale: 0-10 Numeric [Pain] -Is Patient Pain Free? Yes WC - Visit Discharge [Visit Discharge Information] -Discharge Condition Stable -Ambulatory Status Ambulatory -Transportation Private Auto -Notes: Pt bernardino resume Santyl at home. Musculoskeletal: Tenderness - Palpation/manipulation of wound Psych/Mental Status: Normal Affect, Appropriate Debridement Note Post-Debridement Measurements/Treatment WC - Nurse 3 - General Ulcer D/C NN Start: 12/22/19 10:05 Freq: Status: Active Protocol: Activity Type Activity Date Activity User E-Sign Co-Sign Detail Recorded Client Recorded Date Recorded By Document 12/22/19 11:41 DL [id number] 12/22/19 11:43 DL 12/22/19 11:41 Wound Care Nurse 3 #1- R LOCO POST TRAUMA -Ulcer Cleansing Rinsed/ Irrigated with Saline -Foul Odor after Cleansing No -Other Dressing nugel -Primary Dressing Covered/Secured with Dry Gauze & Roll Gauze, Secured with Tape Right -Compression Wrap Surepress ($) Treatment Response Procedure Tolerated Well Vital Signs Temperature (97.8 F-99.1 F) 97.7 F L Temperature Source Temporal Pulse Rate (60-100) 86 Pulse Location Apical Blood Pressure (90/60-120/80) 136/84 H Blood Pressure Mean (mm Hg) 101 Source Monitor Pain Scale: 0-10 Numeric Is Patient Pain Free? Yes WC - Visit Discharge Discharge Condition Stable Ambulatory Status Ambulatory Transportation Private Auto Notes: Pt bernardino resume Santyl at home. Wound debrided: Right loco Laterality: Right Type of Debridement: Excisional debridement Anesthesia Used: 5% Lidocaine Gel Depth: in the subcutaneous layer Percentage of wound debrided: 100 Instrument Used: 7mm curette Tissue Removed: Slough and devitalized tissue Severity: Fat Layer Exposed Amount of bleeding with debridement: Mild Bleeding Controlled with: Pressure Patient tolerated procedure well Assessment/Plan Active Problems Laceration of right lower leg (Chronic) Contusion of right lower leg (Acute) Assessment: 1. Laceration of right lower leg. 2. Cellulitis of right lower leg. 3. Contusion of right lower leg Plan: Debridement performed today in clinic. Hydrogel, Kerlix and SurePress applied. Patient has Santyl at home; does not need a refill at this time. At home wound-care instructions: Keep wound clean and dry. Wash daily with antibacterial soap and water, rinse and dry thoroughly. Apply a nickel thick layer of Santyl to the wound base daily after cleaning. Cover with gauze, Kerlix and apply SurePress. Compression: Apply SurePress to right leg. Off- loading: Avoid prolonged standing or dangling of feet. When seated, elevate feet at or above waist level. Work restrictions will be continued for patient to perform seated work only. Diet: Patient encouraged to increase protein and vitamin C intake while taking caution to avoid high carbohydrate and/or sugar intake. Labs/cultures/imaging: Wound cultures were positive for Morganella. Ampicillin was discontinued and patient was started on a 10-day course of Levaquin 500 mg daily which has since been completed. Lab results reviewed as noted above. Lower extremity arterial studies were completed 12/15/2019 (as noted above) and showed no evidence of significant arterial occlusive disease in the bilateral lower extremities. Tibia/fibula x-ray was negative for acute osseous abnormality. Follow-up: Return to clinic in 1 week for re-evaluation. Return sooner or report to the emergency room should symptoms worsen, or new symptoms arise. Note: [place] speech recognition head of insight software was used to create portions of this document. Sound-alike and misspelled words, as well as other head of insight errors may be contained in the documentation. 111xxx-113xx: 94292 Ivy subq tissue 20 sq cm/<
[2019-12-29 10:04] VITALS: BP 178/94; PULSE 75; RESP 16; TEMP 36.1; BMI 79.0
[2019-12-29 10:46] VITALS: BP 172/86; PULSE 75; RESP 18
--- NOTE | 2019-12-29 14:49 | PN.PCM_ITS ---
(1) Laceration of right lower leg Status: Chronic Current Visit: Yes Code(s): S81.811A - Laceration without foreign body, right lower leg, initial encounter (2) Contusion of right lower leg Status: Acute Current Visit: Yes Code(s): S80.11XA - Contusion of right lower leg, initial encounter (3) Cellulitis of right lower leg Status: Acute Current Visit: No Code(s): L03.115 - Cellulitis of right lower limb Type of Wound Date of Service: 12/29/19 Chief Complaint: right lower leg wound History of Wound: The patient presented 11/24/2019 for evaluation and treatment of a right lower leg wound. This is a workers comp evaluation. The patient is employed at [employer]. On 11/02/2019, the patient was stepping to a platform while at work when he fell and suffered a laceration to his right lower leg. He was evaluated at [facility], and the laceration was approximated with kavita. He subsequently was seen at [facility] on 11/06/2019 and was placed on light work duty. At his follow-up appointment with [facility] on 11/14/2019, his kavita were removed. Dehiscence of the wound with surrounding erythema was noted, as well as swelling, tenderness and warmth at the wound site. He was started on a 10-day course of Keflex, and wound cultures were obtained. Aerobic cultures were positive for E. coli and he was placed on a course of ampicillin. The patient continues to work his position at [employer]. His job entails prolonged periods of standing. He was placed on restrictions for seated work only. On initial presentation, he continued to have redness, warmth, and tenderness of his right lower leg wound and surrounding area. Repeat wound cultures were collected 11/24/19 and were positive for Morganella; ampicillin was discontinued and patient was started on Levaquin 500 mg daily x10 days. Anaerobic cultures were negative. Lower extremity arterial studies were completed 12/15/2019 and showed the following: Right CORBY (PT) 1.20, (DP) 1.11, DBI 0.72; left CORBY (PT) 1.21, (DP) 1.23, DBI 0.89. Labs collected 11/30/2019 were significant for glucose 166, AST 42, ALT 81, prealbumin 45.5. CBC with differential, ESR, and CRP were normal. Tib-fib x-ray completed 11/30/2019 was negative for acute osseous abnormality. He had been cleansing the wound and surrounding area daily with soap and water and covering with clean gauze and Coban wrap at the time of initial evaluation. He was started on Santyl after initial evaluation. The patient denied any fever, chills, nausea, vomiting, or diarrhea. He denied any foul-smelling or purulent drainage from his wound. Progress of Wound: Patient's wound has improved in size and appearance since last visit. He reports compliance with the use of Santyl and compression (Surepress), although when he arrived today his SurePress was not applied properly. He reports he has been doing more ambulatory duties while at work, and is tolerating these well. He completed a 10 day course of Levaquin. The patient denies any fever, chills, nausea, vomiting, or diarrhea. Denies any signs of infection, including increasing pain, redness, swelling, or drainage from affected area. - Physical Exam Vital Signs Temp Pulse Resp BP 97 F L 75 18 172/86 H 12/29/19 10:04 12/29/19 10:46 12/29/19 10:46 12/29/19 10:46 General: Alert, Cooperative, No apparent distress HEENT: Atraumatic, Normocephalic Oral: Moist Mucosa Neck: Supple, Trachea Midline Lungs: Normal air movement Extremities: No clubbing, No cyanosis, No edema, Capillary Refill Less than 3 Seconds, Peripheral Pulses Normal Skin: Ulcer/ Wound - Right lower leg wound with subcutaneous layer exposed. There is no tunneling, undermining, or probing to bone. There is a small amount of slough and devitalized tissue present. There is trace periwound erythema. Wound tenderness has improved significantly. There is no periwound warmth and no purulent/malodorous drainage from the wound. Wound Measurements and Assessment WC - Nurse 1 - General Ulcer Measurement Start: 12/22/19 10:05 Freq: Status: Active Protocol: Activity Type Activity Date Activity User E-Sign Co-Sign Detail Recorded Client Recorded Date Recorded By Document 12/29/19 10:04 [facility] [id number] 12/29/19 10:10 [facility] 12/29/19 10:04 Wound Center Nurse 1 [Ulcer Assessment] #1- R LOCO POST TRAUMA -Combined with other wound No -Current Size (cm) - Length 1.5 -Current Size (cm) - Width 0.7 -Current Size (cm) - Depth 0.2 -Total Square Cm 1.05 -Photo Taken No -Epithelialization Small 1-33% -Tunneling No -Undermining/Tunneling No -Circular Undermining No -Exudate Amt Small -Exudate Type Serosanguineous -Wound Margin Distinct, Outline Attached -Granulation Amt Small (1-33%) -Granulation Quality Red -Slough/Fibrin Yes -Necrosis Amt Large (67-100%) -Necrotic Tissue Type Eschar -Texture (Hailey-wound Skin Appearance) Assessed, Scarring -Moisture (Hailey-wound Skin Appearance Assessed,Dry/ ) Scaly -Color (Hailey-wound Skin Appearance) Assessed -Temperature (Hailey-wound Skin No Abnormality Appearance) (Pt Warm) -Tenderness on Palpation (Hailey-wound No Skin Appearance) -Ulcer Cleansing Rinsed/ Irrigated with Saline -Foul Odor after Cleansing No -Anesthetic Used 5% Lidocaine Gel [Edema Assessment] -Lower Limb Edema Present Yes -Right Calf (cm) 41.1 -Right Ankle (cm) 23.2 WC - Nurse 2 - General Ulcer CM Notes Start: 12/22/19 10:05 Freq: Status: Active Protocol: Activity Type Activity Date Activity User E-Sign Co-Sign Detail Recorded Client Recorded Date Recorded By Document 12/29/19 10:30 PL [id number] 12/29/19 10:39 PL 12/29/19 10:30 Wound Center Nurse 2 [Procedure/Treatment] #1- R LOCO POST TRAUMA -Time 10:29 -Correct Patient Yes -Correct Side, Site, Position Yes -Correct Procedure Yes -Procedure Performed Yes -Type of Procedure Debridement -Clinical Debridement Subcutaneous -Tissue Removed Subcutaneous -Post Debridement (cm) - Length 3.4 -Post Debridement (cm) - Width 1.1 -Post Debridement (cm) - Depth 0.3 -Total Square (Post) (cm) 3.74 -Area of Debridement (cm) - Length 3.4 -Area of Debridement (cm) - Width 1.1 -Total Square (Area) (cm) 3.74 -Tunneling No -Undermining/Tunneling No -Circular Undermining No -Wound/Ulcer Outcome Not Healed -Bioengineered Tissue No -Debridement - Subq, 1st 20sq cm Yes [See Physician Procedure note for Specifics] Pain Scale: 0-10 Numeric [Pain] -Is Patient Pain Free? Yes - Nurse 3 - General Ulcer D/C NN Start: 12/22/19 10:05 Freq: Status: Active Protocol: Activity Type Activity Date Activity User E-Sign Co-Sign Detail Recorded Client Recorded Date Recorded By Document 12/29/19 10:46 RB [id number] 12/29/19 10:49 RB 12/29/19 10:46 Wound Care Nurse 3 [Wound Dressing] #1- R LOCO POST TRAUMA -Primary Dressing Applied Enzymatic -Primary Dressing Covered/Secured Dry Gauze,Dry with Gauze & Roll Gauze,Secured with Tape [Compression Applied] Right -Tubular Bandage Double Layer -Size of Tubigrip Used Size E -Size E ($) 1 [Post Procedure Tolerated] -Treatment Response Procedure Tolerated Well Vital Signs [Pulse] -Pulse Rate (60-100) 75 -Pulse Location Monitor [Respirations] -Respiratory Rate (12-18) 18 -Respiratory rate source Observation [Blood Pressure] -Blood Pressure (90/60-120/80) 172/86 H -Blood Pressure Mean (mm Hg) 114 Pain Scale: 0-10 Numeric [Pain] -Is Patient Pain Free? Yes - Visit Discharge [Visit Discharge Information] -Discharge Condition Stable -Ambulatory Status Ambulatory -Transportation Private Auto -Medication Reconcilliation completed No & provided to patient/care provider -Clinical Summary of Care Provided Yes Musculoskeletal: No Tenderness to Palpation of Joints or Extremities Psych/Mental Status: Normal Affect, Appropriate Debridement Note Post-Debridement Measurements/Treatment - Nurse 2 - General Ulcer CM Notes Start: 12/22/19 10:05 Freq: Status: Active Protocol: Activity Type Activity Date Activity User E-Sign Co-Sign Detail Recorded Client Recorded Date Recorded By Document 12/22/19 14:01 PL [id number] 12/22/19 14:02 PL Document 12/29/19 10:30 PL [id number] 12/29/19 10:39 PL 12/22/19 12/29/19 14:01 10:30 Wound Center Nurse 2 #1- R LOCO POST TRAUMA -Time 11:00 10:29 -Correct Patient Yes Yes -Correct Side, Site, Position Yes Yes -Correct Procedure Yes Yes -Procedure Performed Yes Yes -Type of Procedure Debridement Debridement -Clinical Debridement Subcutaneous Subcutaneous -Tissue Removed Subcutaneous Subcutaneous -Post Debridement (cm) - Length 4 3.4 -Post Debridement (cm) - Width 1.1 1.1 -Post Debridement (cm) - Depth 0.3 0.3 -Total Square (Post) (cm) 4.4 3.74 -Area of Debridement (cm) - Length 4 3.4 -Area of Debridement (cm) - Width 1.1 1.1 -Total Square (Area) (cm) 4.4 3.74 -Tunneling No No -Undermining/Tunneling No No -Circular Undermining No No -Wound/Ulcer Outcome Not Healed Not Healed -Ulcer Cleansing Rinsed/ Irrigated with Saline -Foul Odor after Cleansing No -Bioengineered Tissue No No -Debridement - Subq, 1st 20sq cm Yes Yes Pain Scale: 0-10 Numeric Is Patient Pain Free? Yes Yes WC - Nurse 3 - General Ulcer D/C NN Start: 12/22/19 10:05 Freq: Status: Active Protocol: Activity Type Activity Date Activity User E-Sign Co-Sign Detail Recorded Client Recorded Date Recorded By Document 12/22/19 11:41 DL [id number] 12/22/19 11:43 DL Document 12/29/19 10:46 RB [id number] 12/29/19 10:49 RB 12/22/19 12/29/19 11:41 10:46 Wound Care Nurse 3 #1- R LOCO POST TRAUMA -Ulcer Cleansing Rinsed/ Irrigated with Saline -Foul Odor after Cleansing No -Primary Dressing Applied Enzymatic -Other Dressing nugel -Primary Dressing Covered/Secured with Dry Gauze & Dry Gauze,Dry Roll Gauze, Gauze & Roll Secured with Gauze,Secured Tape with Tape Right -Compression Wrap Surepress ($) -Tubular Bandage Double Layer -Size of Tubigrip Used Size E -Size E ($) 1 Treatment Response Procedure Procedure Tolerated Well Tolerated Well Vital Signs Temperature (97.8 F-99.1 F) 97.7 F L Temperature Source Temporal Pulse Rate (60-100) 86 75 Pulse Location Apical Monitor Respiratory Rate (12-18) 18 Respiratory rate source Observation Blood Pressure (90/60-120/80) 136/84 H 172/86 H Blood Pressure Mean (mm Hg) 101 114 Source Monitor Pain Scale: 0-10 Numeric Is Patient Pain Free? Yes Yes WC - Visit Discharge Discharge Condition Stable Stable Ambulatory Status Ambulatory Ambulatory Transportation Private Auto Private Auto Medication Reconcilliation completed & No provided to patient/care provider Clinical Summary of Care Provided Yes Notes: Pt bernardino resume Santyl at home. Wound debrided: Right loco Laterality: Right Type of Debridement: Excisional debridement Anesthesia Used: 5% Lidocaine Gel Depth: in the subcutaneous layer Percentage of wound debrided: 100 Instrument Used: 3mm curette, 7mm curette Tissue Removed: Slough and devitalized tissue Severity: Fat Layer Exposed Amount of bleeding with debridement: Mild Bleeding Controlled with: Pressure Patient tolerated procedure well Assessment/Plan Active Problems Laceration of right lower leg (Chronic) Contusion of right lower leg (Acute) Assessment: 1. Laceration of right lower leg. 2. Cellulitis of right lower leg. 3. Contusion of right lower leg Plan: Debridement performed today in clinic. Santyl applied. Double Tubigrip's applied. Patient has Santyl at home; does not need a refill at this time. At home wound-care instructions: Keep wound clean and dry. Wash daily with antibacterial soap and water, rinse and dry thoroughly. Apply a nickel thick layer of Santyl to the wound base daily after cleaning. Cover with gauze. Compression: Use double Tubigrip's to right leg daily. Off-loading: Avoid prolonged standing or dangling of feet. When seated, elevate feet at or above waist level. Work restrictions will be updated for patient to perform standing, walking, or seated work so long as appropriate and frequent breaks are given to allow for ambulation and/or elevation of feet. Diet: Patient encouraged to increase protein and vitamin C intake while taking caution to avoid high carboh ydrate and/or sugar intake. Labs/cultures/imaging: Wound cultures were positive for Morganella. Ampicillin was discontinued and patient was started on a 10-day course of Levaquin 500 mg daily which has since been completed. Lab results reviewed as noted above. Lower extremity arterial studies were completed 12/15/2019 (as noted above) and showed no evidence of significant arterial occlusive disease in the bilateral lower extremities. Tibia/fibula x-ray was negative for acute osseous abnormality. Follow-up: Return to clinic in 2 weeks for re-evaluation. Return sooner or report to the emergency room should symptoms worsen, or new symptoms arise. Note: [employer] speech recognition section leader screen printing software was used to create portions of this document. Sound-alike and misspelled words, as well as other section leader screen printing errors may be contained in the documentation. [id number]: [id number] Ivy subq tissue 20 sq cm/<
[2020-01-12 10:38] VITALS: BP 161/93; PULSE 89; RESP 17; TEMP 36; BMI 79.0
--- NOTE | 2020-01-12 13:15 | PN.PCM_ITS ---
(1) Laceration of right lower leg Status: Chronic Code(s): S81.811A - Laceration without foreign body, right lower leg, initial encounter (2) Contusion of right lower leg Status: Acute Code(s): S80.11XA - Contusion of right lower leg, initial encounter (3) Cellulitis of right lower leg Status: Acute Code(s): L03.115 - Cellulitis of right lower limb Type of Wound Date of Service: 01/12/20 Chief Complaint: right lower leg wound History of Wound: The patient presented 11/24/2019 for evaluation and treatment of a right lower leg wound. This is a workers comp evaluation. The patient is employed at [employer]. On 11/02/2019, the patient was stepping to a platform while at work when he fell and suffered a laceration to his right lower leg. He was evaluated at [facility], and the laceration was approximated with kavita. He subsequently was seen at [facility] on 11/06/2019 and was placed on light work duty. At his follow-up appointment with [facility] on 11/14/2019, his kavita were removed. Dehiscence of the wound with surrounding erythema was noted, as well as swelling, tenderness and warmth at the wound site. He was started on a 10-day course of Keflex, and wound cultures were obtained. Aerobic cultures were positive for E. coli and he was placed on a cou rse of ampicillin. The patient continues to work his position at [employer]. His job entails prolonged periods of standing. He was placed on restrictions for seated work only. On initial presentation, he continued to have redness, warmth, and tenderness of his right lower leg wound and surrounding area. Repeat wound cultures were collected 11/24/19 and were positive for Morganella; ampicillin was discontinued and patient was started on Levaquin 500 mg daily x10 days. Anaerobic cultures were negative. Lower extremity arterial studies were completed 12/15/2019 and showed the following: Right CORBY (PT) 1.20, (DP) 1.11, DBI 0.72; left CORBY (PT) 1.21, (DP) 1.23, DBI 0.89. Labs collected 11/30/2019 were significant for glucose 166, AST 42, ALT 81, prealbumin 45.5. CBC with differential, ESR, and CRP were normal. Tib-fib x-ray completed 11/30/2019 was negative for acute osseous abnormality. He had been cleansing the wound and surrounding area daily with soap and water and covering with clean gauze and Coban wrap at the time of initial evaluation. He was started on Santyl after initial evaluation. The patient denied any fever, chills, nausea, vomiting, or diarrhea. He denied any foul-smelling or purulent drainage from his wound. Progress of Wound: Patient's wound has improved in size and appearance since last visit. He reports compliance with the use of Santyl and will Tubigrip's. He did try a new OTC cover?dressing to his wound and developed some erythema and irritation of the periwound area. This has improved with discontinuation of the new dressing. He reports he has been doing ambulatory duties while at work, and is tolerating these well. He completed a 10 day course of Levaquin. The patient denies any fever, chills, nausea, vomiting, or diarrhea. Denies any signs of infection, including increasing pain, redness, swelling, or drainage from affected area. - Physical Exam Vital Signs Temp Pulse Resp BP 96.8 F L 89 17 161/93 H 01/12/20 10:38 01/12/20 10:38 01/12/20 10:38 01/12/20 10:38 General: Alert, Cooperative, No apparent distress HEENT: Atraumatic Oral: Moist Mucosa Neck: Supple Lungs: Normal air movement Cardiovascular: Regular rate Abdomen: Non-Distended Extremities: No clubbing, No cyanosis, No edema, Capillary Refill Less than 3 Seconds Skin: Ulcer/ Wound - R leg wound with subcutaneous layer exposed. No tunneling, undermining, or probing to bone. Moderate amount of slough and devitalized tissue present. There is trace periwound erythema &irritation. Wound tenderness improved significantly. There is no periwound warmth. No purulence/malodor. Wound Measurements and Assessment WC - Nurse 1 - General Ulcer Measurement Start: 12/22/19 10:05 Freq: Status: Active Protocol: Activity Type Activity Date Activity User E-Sign Co-Sign Detail Recorded Client Recorded Date Recorded By Document 01/12/20 10:38 MS [id number] 01/12/20 10:42 MS 01/12/20 10:38 Wound Center Nurse 1 [Ulcer Assessment] #1- R LOCO POST TRAUMA -Current Size (cm) - Length 3.2 -Current Size (cm) - Width 1.8 -Current Size (cm) - Depth 0.3 -Total Square Cm 5.76 -Exudate Amt Small -Exudate Type Serous -Wound Margin Distinct, Outline Attached -Granulation Amt None Present (0 %) -Slough/Fibrin Yes -Texture (Hailey-wound Skin Appearance) Assessed -Moisture (Hailey-wound Skin Appearance Assessed ) -Color (Hailey-wound Skin Appearance) Assessed -Temperature (Hailey-wound Skin No Abnormality Appearance) (Pt Warm) -Tenderness on Palpation (Hailey-wound No Skin Appearance) -Ulcer Cleansing Rinsed/ Irrigated with Saline -Foul Odor after Cleansing No -Anesthetic Used 4% Lidocaine Solution [Edema Assessment] -Right Calf (cm) 40.6 -Right Ankle (cm) 23.4 - Nurse 3 - General Ulcer D/C NN Start: 12/22/19 10:05 Freq: Status: Active Protocol: Activity Type Activity Date Activity User E-Sign Co-Sign Detail Recorded Client Recorded Date Recorded By Document 01/12/20 11:07 [facility] [id number] 01/12/20 11:08 [facility] 01/12/20 11:07 Wound Care Nurse 3 [Wound Dressing] #1- R LOCO POST TRAUMA -Ulcer Cleansing Rinsed/ Irrigated with Saline -Foul Odor after Cleansing No -Primary Dressing Applied Other -Other Dressing HYDROGEL -Primary Dressing Covered/Secured Dry Gauze, with Secured with Tape [Compression Applied] Right -Tubular Bandage Double Layer -Size of Tubigrip Used Size C -Size C ($) 1 [Post Procedure Tolerated] -Treatment Response Procedure Tolerated Well Pain Scale: 0-10 Numeric [Pain] -Is Patient Pain Free? Yes - Visit Discharge [Visit Discharge Information] -Discharge Condition Stable -Ambulatory Status Ambulatory -Transportation Private Auto Musculoskeletal: Tenderness - On debridement of right loco ulcer Neurological: Neuro grossly intact Psych/Mental Status: Normal Affect, Appropriate Debridement Note Post-Debridement Measurements/Treatment WC - Nurse 2 - General Ulcer CM Notes Start: 12/22/19 10:05 Freq: Status: Active Protocol: Activity Type Activity Date Activity User E-Sign Co-Sign Detail Recorded Client Recorded Date Recorded By Document 12/22/19 14:01 PL [id number] 12/22/19 14:02 PL Document 12/29/19 10:30 PL [id number] 12/29/19 10:39 PL 12/22/19 12/29/19 14:01 10:30 Wound Center Nurse 2 #1- R LOCO POST TRAUMA -Time 11:00 10:29 -Correct Patient Yes Yes -Correct Side, Site, Position Yes Yes -Correct Procedure Yes Yes -Procedure Performed Yes Yes -Type of Procedure Debridement Debridement -Clinical Debridement Subcutaneous Subcutaneous -Tissue Removed Subcutaneous Subcutaneous -Post Debridement (cm) - Length 4 3.4 -Post Debridement (cm) - Width 1.1 1.1 -Post Debridement (cm) - Depth 0.3 0.3 -Total Square (Post) (cm) 4.4 3.74 -Area of Debridement (cm) - Length 4 3.4 -Area of Debridement (cm) - Width 1.1 1.1 -Total Square (Area) (cm) 4.4 3.74 -Tunneling No No -Undermining/Tunneling No No -Circular Undermining No No -Wound/Ulcer Outcome Not Healed Not Healed -Ulcer Cleansing Rinsed/ Irrigated with Saline -Foul Odor after Cleansing No -Bioengineered Tissue No No -Debridement - Subq, 1st 20sq cm Yes Yes Pain Scale: 0-10 Numeric Is Patient Pain Free? Yes Yes WC - Nurse 3 - General Ulcer D/C NN Start: 12/22/19 10:05 Freq: Status: Active Protocol: Activity Type Activity Date Activity User E-Sign Co-Sign Detail Recorded Client Recorded Date Recorded By Document 12/22/19 11:41 DL [id number] 12/22/19 11:43 DL Document 12/29/19 10:46 RB [id number] 12/29/19 10:49 RB Document 01/12/20 11:07 BMF [id number] 01/12/20 11:08 BMF 12/22/19 12/29/19 01/12/20 11:41 10:46 11:07 Wound Care Nurse 3 #1- R LOCO POST TRAUMA -Ulcer Cleansing Rinsed/ Rinsed/ Irrigated with Irrigated with Saline Saline -Foul Odor after Cleansing No No -Primary Dressing Applied Enzymatic Other -Other Dressing nugel HYDROGEL -Primary Dressing Covered/Secured with Dry Gauze & Dry Gauze,Dry Dry Gauze, Roll Gauze, Gauze & Roll Secured with Secured with Gauze,Secured Tape Tape with Tape Right -Compression Wrap Surepress ($) -Tubular Bandage Double Layer Double Layer -Size of Tubigrip Used Size E Size C -Size C ($) 1 -Size E ($) 1 Treatment Response Procedure Procedure Procedure Tolerated Well Tolerated Well Tolerated Well Vital Signs Temperature (97.8 F-99.1 F) 97.7 F L Temperature Source Temporal Pulse Rate (60-100) 86 75 Pulse Location Apical Monitor Respiratory Rate (12-18) 18 Respiratory rate source Observation Blood Pressure (90/60-120/80) 136/84 H 172/86 H Blood Pressure Mean (mm Hg) 101 114 Source Monitor Pain Scale: 0-10 Numeric Is Patient Pain Free? Yes Yes Yes WC - Visit Discharge Discharge Condition Stable Stable Stable Ambulatory Status Ambulatory Ambulatory Ambulatory Transportation Private Auto Private Auto Private Auto Medication Reconcilliation completed & No provided to patient/care provider Clinical Summary of Care Provided Yes Notes: Pt bernardino resume Santyl at home. Wound debrided: Right loco Laterality: Right Type of Debridement: Excisional debridement Anesthesia Used: 5% Lidocaine Gel Depth: in the subcutaneous layer Percentage of wound debrided: 100 Instrument Used: 3mm curette Tissue Removed: Slough and devitalized tissue Severity: Fat Layer Exposed Amount of bleeding with debridement: Mild Bleeding Controlled with: Pressure Patient tolerated procedure well Assessment/Plan Assessment: 1. Laceration of right lower leg. 2. Cellulitis of right lower leg. 3. Contusion of right lower leg Plan: Debridement performed today in clinic. Collagen hydrogel applied, as patient does not have Santyl present at today's appointment. Double Tubigrip's applied. Patient has Santyl at home; does not need a refill at this time. He will apply Santyl dressing when he returns home. At home wound-care instructions: Keep wound clean and dry. Wash daily with antibacterial soap and water, rinse and dry thoroughly. Apply a nickel thick layer of Santyl to the wound base daily after cleaning. Cover with gauze. Avoid use of Santyl on healthy skin. Compression: Use double Tubigrip's to right leg daily. Off- loading: Avoid prolonged standing or dangling of feet. When seated, elevate feet at or above waist level. Work restrictions were updated on 12/29/2019 for patient to perform standing, walking, or seated work so long as appropriate and frequent breaks are given to allow for ambulation and/or elevation of feet. He is tolerating this well and this will be continued. Diet: Patient encouraged to increase protein and vitamin C intake while taking caution to avoid high carbohydrate and/or sugar intake. Labs/cultures/imaging: Wound cultures were positive for Morganella. Ampicillin was discontinued and patient was started on a 10-day course of Levaquin 500 mg daily which has since been completed. Lab results reviewed as noted above. Lower extremity arterial studies were completed 12/15/2019 (as noted above) and showed no evidence of significant arterial occlusive disease in the bilateral lower extremities. Tibia/fibula x- ray was negative for acute osseous abnormality. Follow-up: Return to clinic in 1 week for re-evaluation. Return sooner or report to the emergency room should symptoms worsen, or new symptoms arise. Note: [employer] speech recognition subgrade roller operator software was used to create portions of this document. Sound-alike and misspelled words, as well as other subgrade roller operator errors may be contained in the documentation. [id number]: [id number] Ivy subq tissue 20 sq cm/<
[2020-01-19 09:50] VITALS: BP 162/92; PULSE 83; RESP 17; TEMP 35.8; BMI 79.0
[2020-01-19 10:48] VITALS: BP 152/97; PULSE 76
--- NOTE | 2020-01-19 13:29 | PN.PCM_ITS ---
(1) Laceration of right lower leg Status: Chronic Code(s): S81.811A - Laceration without foreign body, right lower leg, initial encounter (2) Contusion of right lower leg Status: Chronic Code(s): S80.11XA - Contusion of right lower leg, initial encounter (3) Cellulitis of right lower leg Status: Acute Code(s): L03.115 - Cellulitis of right lower limb Type of Wound Date of Service: 01/19/20 Chief Complaint: right lower leg wound History of Wound: The patient presented 11/24/2019 for evaluation and treatment of a right lower leg wound. This is a workers comp evaluation. The patient is employed at [employer]. On 11/02/2019, the patient was stepping to a platform while at work when he fell and suffered a laceration to his right lower leg. He was evaluated at [facility], and the laceration was approximated with kavita. He subsequently was seen at [facility] on 11/06/2019 and was placed on light work duty. At his follow-up appointment with [facility] on 11/14/2019, his kavita were removed. Dehiscence of the wound with surrounding erythema was noted, as well as swelling, tenderness and warmth at the wound site. He was started on a 10-day course of Keflex, and wound cultures were obtained. Aerobic cultures were positive for E. coli and he was placed on a c ourse of ampicillin. The patient continues to work his position at [employer]. His job entails prolonged periods of standing. He was placed on restrictions for seated work only. On initial presentation, he continued to have redness, warmth, and tenderness of his right lower leg wound and surrounding area. Repeat wound cultures were collected 11/24/19 and were positive for Morganella; ampicillin was discontinued and patient was started on Levaquin 500 mg daily x10 days. Anaerobic cultures were negative. Lower extremity arterial studies were completed 12/15/2019 and showed the following: Right CORBY (PT) 1.20, (DP) 1.11, DBI 0.72; left CORBY (PT) 1.21, (DP) 1.23, DBI 0.89. Labs collected 11/30/2019 were significant for glucose 166, AST 42, ALT 81, prealbumin 45.5. CBC with differential, ESR, and CRP were normal. Tib-fib x-ray completed 11/30/2019 was negative for acute osseous abnormality. He had been cleansing the wound and surrounding area daily with soap and water and covering with clean gauze and Coban wrap at the time of initial evaluation. He was started on Santyl after initial evaluation. The patient denied any fever, chills, nausea, vomiting, or diarrhea. He denied any foul-smelling or purulent drainage from his wound. Progress of Wound: Patient's wound has improved in size and appearance since last visit. He reports compliance with the use of Santyl and double Tubigrip's. He continues to have erythema and irritation of the periwound area.this was previously suspected to be due to a new dressing that he had initiated, but I now suspect that his Santyl is coming in contact with his healthy skin. He reports he has been doing ambulatory duties while at work, and is tolerating these well. He completed a 10 day course of Levaquin. The patient denies any fever, chills, nausea, vomiting, or diarrhea. Denies any signs of infection, including increasing pain, redness, swelling, or drainage from affected area. - Physical Exam Vital Signs Temp Pulse Resp BP 96.5 F L 76 17 152/97 H 01/19/20 09:50 01/19/20 10:48 01/19/20 09:50 01/19/20 10:48 General: Alert, Cooperative, No apparent distress HEENT: Atraumatic, Normocephalic Oral: Moist Mucosa Neck: Supple Lungs: Normal air movement Cardiovascular: Regular rate Extremities: No clubbing, No cyanosis, Capillary Refill Less than 3 Seconds, Edema - Trace edema of right lower extremity, Peripheral Pulses Normal Skin: Ulcer/ Wound - Right leg wound with fat layer exposed. No tunneling, undermining or probing to bone. Small amount of slough and devitalized tissue present. Moderate periwound erythema and irritation. Wound tenderness significantly improved. Wound Measurements and Assessment WC - Nurse 1 - General Ulcer Measurement Start: 12/22/19 10:05 Freq: Status: Active Protocol: Activity Type Activity Date Activity User E-Sign Co-Sign Detail Recorded Client Recorded Date Recorded By Document 01/19/20 09:50 RB [id number] 01/19/20 09:53 RB 01/19/20 09:50 Wound Center Nurse 1 [Ulcer Assessment] #1- R LOCO POST TRAUMA -Current Size (cm) - Length 3 -Current Size (cm) - Width 0.5 -Current Size (cm) - Depth 0.1 -Total Square Cm 1.5 -Epithelialization Medium 34-66% -Exudate Amt Medium -Exudate Type Serosanguineous -Wound Margin Distinct, Outline Attached -Granulation Amt Small (1-33%) -Granulation Quality Red -Slough/Fibrin Yes -Necrotic Tissue Type Adherent Slough -Texture (Hailey-wound Skin Appearance) No Abnormality, Assessed -Moisture (Hailey-wound Skin Appearance No Abnormality, ) Assessed -Color (Hailey-wound Skin Appearance) No Abnormality, Assessed -Temperature (Hailey-wound Skin No Abnormality Appearance) (Pt Warm) -Ulcer Cleansing Rinsed/ Irrigated with Saline -Foul Odor after Cleansing No -Anesthetic Used 4% Lidocaine Solution WC - Nurse 3 - General Ulcer D/C NN Start: 12/22/19 10:05 Freq: Status: Active Protocol: Activity Type Activity Date Activity User E-Sign Co-Sign Detail Recorded Client Recorded Date Recorded By Document 01/19/20 10:48 RB [id number] 01/19/20 10:49 RB 01/19/20 10:48 Wound Care Nurse 3 [Wound Dressing] -Ulcer Cleansing Rinsed/ Irrigated with Saline -Primary Dressing Applied Aquacel AG 4x4 -Primary Dressing Covered/Secured Dry Gauze, with Secured with Tape -Aquacel AG 4x4 1 [Compression Applied] Right -Other pt own tubigrip [Post Procedure Tolerated] -Treatment Response Procedure Tolerated Well Vital Signs [Pulse] -Pulse Rate (60-100) 76 -Pulse Location Monitor [Blood Pressure] -Blood Pressure (90/60-120/80) 152/97 H -Blood Pressure Mean (mm Hg) 115 -Source Monitor -Position Semi-Fowlers -Blood Pressure Location Right Arm Teaching: Wound Center [Wound Center Education] (Items with an * have Printed Materials Available- Please identify what is given to patient under the Teaching materials given to patient and caregiver Section. Dressing Your Wound -Person Taught Patient -Teaching Method Discussion -Response to teaching Verbalize understanding WC - Visit Discharge [Visit Discharge Information] -Discharge Condition Stable -Ambulatory Status Ambulatory -Transportation Private Auto -Medication Reconcilliation completed No & provided to patient/care provider -Clinical Summary of Care Provided Yes Neurological: Neuro grossly intact Psych/Mental Status: Normal Affect, Appropriate Debridement Note Post-Debridement Measurements/Treatment EMILY - Nurse 2 - General Ulcer CM Notes Start: 12/22/19 10:05 Freq: Status: Active Protocol: Activity Type Activity Date Activity User E-Sign Co-Sign Detail Recorded Client Recorded Date Recorded By Document 12/22/19 14:01 PL [id number] 12/22/19 14:02 PL Document 12/29/19 10:30 PL [id number] 12/29/19 10:39 PL Document 01/12/20 14:33 PL [id number] 01/12/20 14:34 PL 12/22/19 12/29/19 01/12/20 14:01 10:30 14:33 Wound Center Nurse 2 #1- R LOCO POST TRAUMA -Time 11:00 10:29 10:52 -Correct Patient Yes Yes Yes -Correct Side, Site, Position Yes Yes Yes -Correct Procedure Yes Yes Yes -Procedure Performed Yes Yes Yes -Type of Procedure Debridement Debridement Debridement -Clinical Debridement Subcutaneous Subcutaneous Subcutaneous -Tissue Removed Subcutaneous Subcutaneous Subcutaneous -Post Debridement (cm) - Length 4 3.4 3.4 -Post Debridement (cm) - Width 1.1 1.1 1.0 -Post Debridement (cm) - Depth 0.3 0.3 0.3 -Total Square (Post) (cm) 4.4 3.74 3.40 -Area of Debridement (cm) - Length 4 3.4 3.4 -Area of Debridement (cm) - Width 1.1 1.1 1.0 -Total Square (Area) (cm) 4.4 3.74 3.40 -Tunneling No No No -Undermining/Tunneling No No No -Circular Undermining No No No -Wound/Ulcer Outcome Not Healed Not Healed Not Healed -Ulcer Cleansing Rinsed/ Rinsed/ Irrigated with Irrigated with Saline Saline -Foul Odor after Cleansing No No -Bioengineered Tissue No No No -Treatment Response Procedure Tolerated Well -Debridement - Subq, 1st 20sq cm Yes Yes Yes Pain Scale: 0-10 Numeric Is Patient Pain Free? Yes Yes Yes EMILY - Nurse 3 - General Ulcer D/C NN Start: 12/22/19 10:05 Freq: Status: Active Protocol: Activity Type Activity Date Activity User E-Sign Co-Sign Detail Recorded Client Recorded Date Recorded By Document 12/22/19 11:41 DL [id number] 12/22/19 11:43 DL Document 12/29/19 10:46 RB [id number] 12/29/19 10:49 RB Document 01/12/20 11:07 BMF [id number] 01/12/20 11:08 BMF Document 01/19/20 10:48 RB [id number] 01/19/20 10:49 RB 12/22/19 12/29/19 01/12/20 11:41 10:46 11:07 Wound Care Nurse 3 #1- R LOCO POST TRAUMA -Ulcer Cleansing Rinsed/ Rinsed/ Irrigated with Irrigated with Saline Saline -Foul Odor after Cleansing No No -Primary Dressing Applied Enzymatic Other -Other Dressing nugel HYDROGEL -Primary Dressing Covered/Secured with Dry Gauze & Dry Gauze,Dry Dry Gauze, Roll Gauze, Gauze & Roll Secured with Secured with Gauze,Secured Tape Tape with Tape -Aquacel AG 4x4 Right -Compression Wrap Surepress ($) -Tubular Bandage Double Layer Double Layer -Size of Tubigrip Used Size E Size C -Size C ($) 1 -Size E ($) 1 -Other Treatment Response Procedure Procedure Procedure Tolerated Well Tolerated Well Tolerated Well Vital Signs Temperature (97.8 F-99.1 F) 97.7 F L Temperature Source Temporal Pulse Rate (60-100) 86 75 Pulse Location Apical Monitor Respiratory Rate (12-18) 18 Respiratory rate source Observation Blood Pressure (90/60-120/80) 136/84 H 172/86 H Blood Pressure Mean (mm Hg) 101 114 Source Monitor Position Blood Pressure Location Pain Scale: 0-10 Numeric Is Patient Pain Free? Yes Yes Yes Teaching: Wound Center Dressing Your Wound -Person Taught -Teaching Method -Response to teaching WC - Visit Discharge Discharge Condition Stable Stable Stable Ambulatory Status Ambulatory Ambulatory Ambulatory Transportation Private Auto Private Auto Private Auto Medication Reconcilliation completed & No provided to patient/care provider Clinical Summary of Care Provided Yes Notes: Pt bernardino Ferguson at home. 01/19/20 10:48 Wound Care Nurse 3 #1- R LOCO POST TRAUMA -Ulcer Cleansing Rinsed/ Irrigated with Saline -Foul Odor after Cleansing -Primary Dressing Applied Aquacel AG 4x4 -Other Dressing -Primary Dressing Covered/Secured with Dry Gauze, Secured with Tape -Aquacel AG 4x4 1 Right -Compression Wrap -Tubular Bandage -Size of Tubigrip Used -Size C ($) -Size E ($) -Other pt own tubigrip Treatment Response Procedure Tolerated Well Vital Signs Temperature (97.8 F-99.1 F) Temperature Source Pulse Rate (60-100) 76 Pulse Location Monitor Respiratory Rate (12-18) Respiratory rate source Blood Pressure (90/60-120/80) 152/97 H Blood Pressure Mean (mm Hg) 115 Source Monitor Position Semi-Fowlers Blood Pressure Location Right Arm Pain Scale: 0-10 Numeric Is Patient Pain Free? Teaching: Wound Center Dressing Your Wound -Person Taught Patient -Teaching Method Discussion -Response to teaching Verbalize understanding WC - Visit Discharge Discharge Condition Stable Ambulatory Status Ambulatory Transportation Private Auto Medication Reconcilliation completed & No provided to patient/care provider Clinical Summary of Care Provided Yes Notes: Wound debrided: Right loco Laterality: Right Type of Debridement: Excisional debridement Anesthesia Used: 5% Lidocaine Gel Depth: in the subcutaneous layer Percentage of wound debrided: 100 Instrument Used: 3mm curette Tissue Removed: Slough and devitalized tissue Severity: Fat Layer Exposed Amount of bleeding with debridement: Mild Bleeding Controlled with: Pressure Patient tolerated procedure well Assessment/Plan Active Problems Laceration of right lower leg (Chronic) Contusion of right lower leg (Chronic) Cellulitis of right lower leg (Acute) Assessment: 1. Laceration of right lower leg. 2. Cellulitis of right lower leg. 3. Contusion of right lower leg Plan: Debridement performed today in clinic. Santyl will be discontinued due to irritation of healthy skin tissue. Patient will start daily Aquacel Ag changes. Aquacel Ag applied today in clinic. Double Tubigrip's applied. Given the duration of the wound and failure of the wound to respond to standard wound care, we will apply for advanced skin substitutes. At home wound-care instructions: Keep wound clean and dry. Wash daily with antibacterial soap and water, rinse and dry thoroughly. Apply a new Aquacel Ag dressing daily, or more frequently as needed for contamination. Compression: Use double Tubigrip's to right leg daily. Off-loading: Avoid prolonged standing or dangling of feet. When seated, elevate feet at or above waist level. Work restrictions were updated on 12/29/2019 for patient to perform standing, walking, or seated work so long as appropriate and frequent breaks are given to allow for ambulation and/or elevation of feet. He is tolerating this well and this will be continued. Diet: Patient encouraged to increase protein and vitamin C intake while taking caution to avoid high carbohydrate and/or sugar intake. Labs/cultures/imaging: Wound cultures were positive for Morganella. Ampicillin was discontinued and patient was started on a 10-day course of Levaquin 500 mg daily which has since been completed. Lab results reviewed as noted above. Lower extremity arterial studies were completed 12/15/2019 (as noted above) and showed no evidence of significant arterial occlusive disease in the bilateral lower extremities. Tibia/fibula x-ray was negative for acute osseous abnormality. Follow-up: Return to clinic in 1 week for re-evaluation. Return sooner or report to the emergency room should symptoms worsen, or new symptoms arise. Note: [employer] speech recognition used car salesperson software was used to create portions of this document. Sound-alike and misspelled words, as well as other used car salesperson errors may be contained in the documentation.
== END 2020-01-20 23:59 ==
LOC: WC 09:30
PROVIDERS: Referring Provider Family Medicine; Visit Provider Nurse Practitioner Family
DX: L03.115 Cellulitis of right lower limb (principal); S81.811A Laceration without foreign body, right lower leg, initial encounter; S80.11XA Contusion of right lower leg, initial encounter; W17.89XA Other fall from one level to another, initial encounter; Y93.89 Activity, other specified; Y92.89 Other specified places as the place of occurrence of the external cause; Y99.0 Civilian activity done for income or pay; B96.20 Unspecified Escherichia coli [E. coli] as the cause of diseases classified elsewhere
CPT/HCPCS: 11042; 11045

== ENCOUNTER 2020-02-16 09:30 | Outpatient (RCR) | payer OTHER, SELFPAY ==
[2020-01-21 00:11] VITALS: BP 152/97; PULSE 76; RESP 17; TEMP 35.8
[2020-01-26 09:50] VITALS: BP 163/95; PULSE 76; TEMP 35.3; BMI 79.0
--- NOTE | 2020-01-26 12:22 | PN.PCM_ITS ---
(1) Laceration of right lower leg Status: Chronic Code(s): S81.811A - Laceration without foreign body, right lower leg, initial encounter (2) Contusion of right lower leg Status: Chronic Code(s): S80.11XA - Contusion of right lower leg, initial encounter (3) Cellulitis of right lower leg Status: Resolved Code(s): L03.115 - Cellulitis of right lower limb Type of Wound Date of Service: 01/26/20 Chief Complaint: right lower leg wound History of Wound: The patient presented 11/24/2019 for evaluation and treatment of a right lower leg wound. This is a workers comp evaluation. The patient is employed at [employer]. On 11/02/2019, the patient was stepping to a platform while at work when he fell and suffered a laceration to his right lower leg. He was evaluated at [facility], and the laceration was approximated with kavita. He subsequently was seen at [facility] on 11/06/2019 and was placed on light work duty. At his follow-up appointment with [facility] on 11/14/2019, his kavita were removed. Dehiscence of the wound with surrounding erythema was noted, as well as swelling, tenderness and warmth at the wound site. He was started on a 10-day course of Keflex, and wound cultures were obtained. Aerobic cultures were positive for E. coli and he was placed on a course of ampicillin. The patient continues to work his position at [employer]. His job entails prolonged periods of standing. He was placed on restrictions for seated work only. On initial presentation, he continued to have redness, warmth, and tenderness of his right lower leg wound and surrounding area. Repeat wound cultures were collected 11/24/19 and were positive for Morganella; ampicillin was discontinued and patient was started on Levaquin 500 mg daily x10 days. Anaerobic cultures were negative. Lower extremity arterial studies were completed 12/15/2019 and showed the following: Right CORBY (PT) 1.20, (DP) 1.11, DBI 0.72; left CORBY (PT) 1.21, (DP) 1.23, DBI 0.89. Labs collected 11/30/2019 were significant for glucose 166, AST 42, ALT 81, prealbumin 45.5. CBC with differential, ESR, and CRP were normal. Tib-fib x-ray completed 11/30/2019 was negative for acute osseous abnormality. He had been cleansing the wound and surrounding area daily with soap and water and covering with clean gauze and Coban wrap at the time of initial evaluation. He was started on Santyl after initial evaluation. The patient denied any fever, chills, nausea, vomiting, or diarrhea. He denied any foul-smelling or purulent drainage from his wound. Progress of Wound: Patient's wound has improved in size and appearance since last visit. He reports compliance with the use of Aquacel Ag and double Tubigrip's. The erythema and irritation of the periwound area has improved. This was initially suspected to be due to a new dressing that he had initiated, but may be the result of Santyl is coming in contact with his healthy skin. He reports he has been doing ambulatory duties while at work, and is tolerating these well. He completed a 10 day course of Levaquin. The patient denies any fever, chills, nausea, vomiting, or diarrhea. Denies increasing pain, redness, swelling, or drainage from affected area. - Physical Exam Vital Signs Temp Pulse Resp BP 95.6 F L 76 17 163/95 H 01/26/20 09:50 01/26/20 09:50 01/21/20 00:11 01/26/20 09:50 General: Alert, Cooperative, No apparent distress HEENT: Atraumatic, Normocephalic Oral: Moist Mucosa Neck: Supple, Trachea Midline Lungs: Normal air movement Cardiovascular: Regular rate Abdomen: Obese Extremities: No clubbing, No cyanosis, Capillary Refill Less than 3 Seconds, Edema - Trace edema of right lower extremity, Peripheral Pulses Normal Skin: Ulcer/ Wound - Right leg wound with fat layer exposed. No tunneling, undermining or probing to bone. Small amount of slough and devitalized tissue present. Moderate periwound erythema and irritation. Significantly improved tenderness. Wound Measurements and Assessment WC - Nurse 1 - General Ulcer Measurement Start: 01/26/20 09:50 Freq: Status: Active Protocol: Activity Type Activity Date Activity User E-Sign Co-Sign Detail Recorded Client Recorded Date Recorded By Document 01/26/20 09:50 MS [id number] 01/26/20 09:58 MS 01/26/20 09:50 Wound Center Nurse 1 [Ulcer Assessment] #1- R LOCO POST TRAUMA -Current Size (cm) - Length 3.8 -Current Size (cm) - Width 0.5 -Current Size (cm) - Depth 0.1 -Total Square Cm 1.90 -Epithelialization Small 1-33% -Exudate Amt Small -Exudate Type Serosanguineous -Wound Margin Distinct, Outline Attached -Granulation Amt Small (1-33%) -Slough/Fibrin Yes -Necrosis Amt Small (1-33%) -Necrotic Tissue Type Adherent Slough -Texture (Hailey-wound Skin Appearance) Assessed -Moisture (Hailey-wound Skin Appearance Assessed ) -Color (Hailey-wound Skin Appearance) Assessed -Temperature (Hailey-wound Skin No Abnormality Appearance) (Pt Warm) -Tenderness on Palpation (Hailey-wound No Skin Appearance) -Ulcer Cleansing Rinsed/ Irrigated with Saline -Foul Odor after Cleansing No -Anesthetic Used 4% Lidocaine Solution Psych/Mental Status: Normal Affect, Appropriate Debridement Note Wound debrided: Right loco Laterality: Right Type of Debridement: Excisional debridement Anesthesia Used: 5% Lidocaine Gel Depth: in the subcutaneous layer Percentage of wound debrided: 100 Instrument Used: 3mm curette Tissue Removed: Slough and devitalized tissue Severity: Fat Layer Exposed Amount of bleeding with debridement: Mild Bleeding Controlled with: Pressure Patient tolerated procedure well Assessment/Plan Active Problems Laceration of right lower leg (Chronic) Contusion of right lower leg (Chronic) Assessment: 1. Laceration of right lower leg. 2. Cellulitis of right lower leg. 3. Contusion of right lower leg Plan: Debridement performed today in clinic. Will continue Aquacel Ag changes. Aquacel Ag applied today in clinic. Double Tubigrip's applied. Given the duration of the wound and failure of the wound to respond to standard wound care, we will apply for advanced skin substitutes. The patient was approved for puraply, however we will hold off on applying this product today due to uncertainty regarding [facility] approval for use of product. A C9 form will be submitted. At home wound-care instructions: Keep wound clean and dry. Wash daily with antibacterial soap and water, rinse and dry thoroughly. Apply a new Aquacel Ag dressing daily, or more frequently as needed for contamination. Compression: Use double Tubigrip's to right leg daily. Off-loading: Avoid prolonged standing or dangling of feet. When seated, elevate feet at or above waist level. Work restrictions were updated on 12/29/2019 for patient to perform standing, walking, or seated work so long as appropriate and frequent breaks are given to allow for ambulation and/or elevation of feet. He is tolerating this well and this will be continued. Diet: Patient encouraged to increase protein and vitamin C intake while taking caution to avoid high carbohydrate and/or sugar intake. Labs/cultures/imaging: Wound cultures were positive for Morganella. Ampicillin was discontinued and patient was started on a 10-day course of Levaquin 500 mg daily which has since been completed. Lab results reviewed as noted above. Lower extremity arterial studies were completed 12/15/2019 (as noted above) and showed no evidence of significant arterial occlusive disease in the bilateral lower extremities. Tibia/fibula x-ray was negative for acute osseous abnormality. Follow-up: Return to clinic in 1 week for re-evaluation. Return sooner or report to the emergency room should symptoms worsen, or new symptoms arise. Note: [employer] speech recognition alumni relations coordinator software was used to create portions of this document. Sound-alike and misspelled words, as well as other alumni relations coordinator errors may be contained in the documentation. [id number]: [id number] Ivy subq tissue 20 sq cm/<
[2020-02-02 10:39] VITALS: BP 149/92; PULSE 89; RESP 18; TEMP 36.2; BMI 79.0
[2020-02-02 11:24] VITALS: BP 149/92; PULSE 89; RESP 18; TEMP 36.1
--- NOTE | 2020-02-02 14:20 | PCM.WC.PN ---
(1) Laceration of right lower leg Status: Chronic Code(s): S81.811A - Laceration without foreign body, right lower leg, initial encounter (2) Contusion of right lower leg Status: Chronic Code(s): S80.11XA - Contusion of right lower leg, initial encounter (3) Cellulitis of right lower leg Status: Resolved Code(s): L03.115 - Cellulitis of right lower limb Type of Wound Date of Service: 02/02/20 Chief Complaint: right lower leg wound History of Wound: The patient presented 11/24/2019 for evaluation and treatment of a right lower leg wound. This is a workers comp evaluation. The patient is employed at [employer]. On 11/02/2019, the patient was stepping to a platform while at work when he fell and suffered a laceration to his right lower leg. He was evaluated at [facility], and the laceration was approximated with kavita. He subsequently was seen at [facility] on 11/06/2019 and was placed on light work duty. At his follow-up appointment with [facility] on 11/14/2019, his kavita were removed. Dehiscence of the wound with surrounding erythema was noted, as well as swelling, tenderness and warmth at the wound site. He was started on a 10-day course of Keflex, and wound cultures were obtained. Aerobic cultures were positive for E. coli and he was placed on a course of ampicillin. The patient continues to work his position at [employer]. His job entails prolonged periods of standing. He was placed on restrictions for seated work only. On initial presentation, he continued to have redness, warmth, and tenderness of his right lower leg wound and surrounding area. Repeat wound cultures were collected 11/24/19 and were positive for Morganella; ampicillin was discontinued and patient was started on Levaquin 500 mg daily x10 days. Anaerobic cultures were negative. Lower extremity arterial studies were completed 12/15/2019 and showed the following: Right CORBY (PT) 1.20, (DP) 1.11, DBI 0.72; left CORBY (PT) 1.21, (DP) 1.23, DBI 0.89. Labs collected 11/30/2019 were significant for glucose 166, AST 42, ALT 81, prealbumin 45.5. CBC with differential, ESR, and CRP were normal. Tib-fib x-ray completed 11/30/2019 was negative for acute osseous abnormality. He had been cleansing the wound and surrounding area daily with soap and water and covering with clean gauze and Coban wrap at the time of initial evaluation. He was started on Santyl after initial evaluation. The patient denied any fever, chills, nausea, vomiting, or diarrhea. He denied any foul-smelling or purulent drainage from his wound. Progress of Wound: Patient's wound has improved. He reports compliance with the use of Aquacel Ag and double Tubigrip's. The erythema and irritation of the periwound area has improved. This was initially suspected to be due to a new dressing that he had initiated, but may be the result of Santyl is coming in contact with his healthy skin. He reports he has been doing ambulatory duties while at work, and is tolerating these well. He completed a 10 day course of Levaquin. The patient denies any fever, chills, nausea, vomiting, or diarrhea. Denies increasing pain, redness, swelling, or drainage from affected area. - Physical Exam Vital Signs Temp Pulse Resp BP 97 F L 89 18 149/92 H 02/02/20 11:24 02/02/20 11:24 02/02/20 11:24 02/02/20 11:24 General: Alert, Cooperative, No apparent distress HEENT: Atraumatic, Normocephalic Oral: Moist Mucosa Neck: Supple, Trachea Midline Lungs: Normal air movement Abdomen: Obese Extremities: No clubbing, No cyanosis, No edema, Capillary Refill Less than 3 Seconds, Peripheral Pulses Normal Skin: Ulcer/ Wound - Right leg wound with fat layer exposed. No tunneling, undermining, or probing to bone. Small amount of slough devitalized tissue present., Rash Present - Periulcer rash is improved since last week Wound Measurements and Assessment WC - Nurse 1 - General Ulcer Measurement Start: 01/26/20 09:50 Freq: Status: Active Protocol: Activity Type Activity Date Activity User E-Sign Co-Sign Detail Recorded Client Recorded Date Recorded By Document 02/02/20 10:39 DL [id number] 02/02/20 10:40 DL 02/02/20 10:39 Wound Center Nurse 1 [Ulcer Assessment] #1- R LOCO POST TRAUMA -Current Size (cm) - Length 3 -Current Size (cm) - Width 0.5 -Current Size (cm) - Depth 0.2 -Total Square Cm 1.5 -Photo Taken No -Exudate Amt Small -Exudate Type Serosanguineous -Wound Margin Distinct, Outline Attached -Granulation Amt Medium (34-66%) -Granulation Quality Webber -Necrosis Amt Medium (34-66%) -Necrotic Tissue Type Adherent Slough -Structure Exposed N/A -Texture (Hailey-wound Skin Appearance) Scarring,Rash -Moisture (Hailey-wound Skin Appearance No Abnormality ) -Color (Hailey-wound Skin Appearance) Erythema -Temperature (Hailey-wound Skin No Abnormality Appearance) (Pt Warm) -Tenderness on Palpation (Hailey-wound No Skin Appearance) -Ulcer Cleansing Wound Cleanser -Foul Odor after Cleansing No -Anesthetic Used 4% Lidocaine Solution [Edema Assessment] -Right Calf (cm) 40 -Right Ankle (cm) 23 WC - Nurse 2 - General Ulcer CM Notes Start: 01/26/20 09:50 Freq: Status: Active Protocol: Activity Type Activity Date Activity User E-Sign Co-Sign Detail Recorded Client Recorded Date Recorded By Document 02/02/20 14:13 PL [id number] 02/02/20 14:14 PL 02/02/20 14:13 Wound Center Nurse 2 [Procedure/Treatment] #1- R LOCO POST TRAUMA -Time 11:10 -Correct Patient Yes -Correct Side, Site, Position Yes -Correct Procedure Yes -Procedure Performed Yes -Type of Procedure Debridement -Clinical Debridement Subcutaneous -Tissue Removed Subcutaneous -Post Debridement (cm) - Length 2.9 -Post Debridement (cm) - Width 0.6 -Post Debridement (cm) - Depth 0.2 -Total Square (Post) (cm) 1.74 -Area of Debridement (cm) - Length 2.9 -Area of Debridement (cm) - Width 0.6 -Total Square (Area) (cm) 1.74 -Tunneling No -Undermining/Tunneling No -Circular Undermining No -Wound/Ulcer Outcome Not Healed -Ulcer Cleansing Rinsed/ Irrigated with Saline -Foul Odor after Cleansing No -Bioengineered Tissue No -Bleeding Controlled with Pressure -Treatment Response Procedure Tolerated Well -Debridement - Subq, 1st 20sq cm Yes [See Physician Procedure note for Specifics] Pain Scale: 0-10 Numeric [Pain] -Is Patient Pain Free? Yes - Nurse 3 - General Ulcer D/C NN Start: 01/26/20 09:50 Freq: Status: Active Protocol: Activity Type Activity Date Activity User E-Sign Co-Sign Detail Recorded Client Recorded Date Recorded By Document 02/02/20 11:24 DL [id number] 02/02/20 11:26 DL 02/02/20 11:24 Wound Care Nurse 3 [Wound Dressing] #1- R LOCO POST TRAUMA -Ulcer Cleansing Rinsed/ Irrigated with Saline -Foul Odor after Cleansing No -Primary Dressing Applied Promogran Jody Matter -Primary Dressing Covered/Secured Dry Gauze, with Secured with Tape -Promogran Jody Matter 1 [Post Procedure Tolerated] -Treatment Response Procedure Tolerated Well Vital Signs [Temperature Protocol: VS] -Temperature (97.8 F-99.1 F) 97 F L -Temperature Source Temporal [Pulse] -Pulse Rate (60-100) 89 -Pulse Location Monitor [Respirations] -Respiratory Rate (12-18) 18 -Respiratory rate source Observation [Blood Pressure] -Blood Pressure (90/60-120/80) 149/92 H -Blood Pressure Mean (mm Hg) 111 -Source Monitor Pain Scale: 0-10 Numeric [Pain] -Is Patient Pain Free? Yes - Visit Discharge [Visit Discharge Information] -Discharge Condition Stable -Ambulatory Status Ambulatory -Transportation Private Auto Musculoskeletal: Tenderness - On debridement Psych/Mental Status: Normal Affect, Appropriate Debridement Note Post-Debridement Measurements/Treatment WC - Nurse 2 - General Ulcer CM Notes Start: 01/26/20 09:50 Freq: Status: Active Protocol: Activity Type Activity Date Activity User E-Sign Co-Sign Detail Recorded Client Recorded Date Recorded By Document 01/26/20 12:50 PL [id number] 01/26/20 12:53 PL Document 02/02/20 14:13 PL [id number] 02/02/20 14:14 PL 01/26/20 02/02/20 12:50 14:13 Wound Center Nurse 2 #1- R LOCO POST TRAUMA -Time 10:11 11:10 -Correct Patient Yes Yes -Correct Side, Site, Position Yes Yes -Correct Procedure Yes Yes -Procedure Performed Yes Yes -Type of Procedure Debridement Debridement -Clinical Debridement Subcutaneous Subcutaneous -Tissue Removed Subcutaneous Subcutaneous -Post Debridement (cm) - Length 2.9 2.9 -Post Debridement (cm) - Width 0.7 0.6 -Post Debridement (cm) - Depth 0.3 0.2 -Total Square (Post) (cm) 2.03 1.74 -Area of Debridement (cm) - Length 2.9 2.9 -Area of Debridement (cm) - Width 0.7 0.6 -Total Square (Area) (cm) 2.03 1.74 -Tunneling No No -Undermining/Tunneling No No -Circular Undermining No No -Wound/Ulcer Outcome Not Healed Not Healed -Ulcer Cleansing Rinsed/ Rinsed/ Irrigated with Irrigated with Saline Saline -Foul Odor after Cleansing No No -Bioengineered Tissue No No -Bleeding Controlled with Pressure -Treatment Response Procedure Tolerated Well -Debridement - Subq, 1st 20sq cm Yes Yes Pain Scale: 0-10 Numeric Is Patient Pain Free? Yes Yes - Nurse 3 - General Ulcer D/C NN Start: 01/26/20 09:50 Freq: Status: Active Protocol: Activity Type Activity Date Activity User E-Sign Co-Sign Detail Recorded Client Recorded Date Recorded By Document 01/26/20 12:50 PL [id number] 01/26/20 12:53 PL Document 02/02/20 11:24 DL [id number] 02/02/20 11:26 DL 01/26/20 02/02/20 12:50 11:24 Pain Scale: 0-10 Numeric Is Patient Pain Free? Yes Yes Wound Care Nurse 3 #1- R LOCO POST TRAUMA -Ulcer Cleansing Rinsed/ Rinsed/ Irrigated with Irrigated with Saline Saline -Foul Odor after Cleansing No No -Primary Dressing Applied Aquacel AG 4x4 Promogran Jody Matter -Primary Dressing Covered/Secured with Dry Gauze & Dry Gauze, Roll Gauze, Secured with Secured with Tape Tape -Aquacel AG 4x4 1 -Promogran Jody Matter 1 Right -Tubular Bandage Double Layer -Size of Tubigrip Used Size C -Size C ($) 2 Treatment Response Procedure Tolerated Well Vital Signs Temperature (97.8 F-99.1 F) 97 F L Temperature Source Temporal Pulse Rate (60-100) 89 Pulse Location Monitor Respiratory Rate (12-18) 18 Respiratory rate source Observation Blood Pressure (90/60-120/80) 149/92 H Blood Pressure Mean (mm Hg) 111 Source Monitor WC - Visit Discharge Discharge Condition Stable Stable Ambulatory Status Ambulatory Ambulatory Transportation Private Auto Private Auto Clinical Summary of Care Provided Yes Wound debrided: Right loco Laterality: Right Type of Debridement: Excisional debridement Anesthesia Used: 5% Lidocaine Gel, Cetacaine Depth: in the subcutaneous layer Percentage of wound debrided: 100 Instrument Used: 3mm curette Tissue Removed: Slough and devitalized tissue Severity: Fat Layer Exposed Amount of bleeding with debridement: Mild Bleeding Controlled with: Pressure Patient tolerated procedure well Assessment/Plan Active Problems Laceration of right lower leg (Chronic) Contusion of right lower leg (Chronic) Assessment: 1. Laceration of right lower leg. 2. Cellulitis of right lower leg. 3. Contusion of right lower leg Plan: Debridement performed today in clinic. Will change to daily Jody dressing changes. Jody applied today in clinic. Double Tubigrip's applied. Given the duration of the wound and failure of the wound to respond to standard wound care, we will apply for advanced skin substitutes. The patient was approved for puraply, however we are awaiting [facility] approval of the C9. At home wound-care instructions: Keep wound clean and dry. Wash daily with antibacterial soap and water, rinse and dry thoroughly. Apply a new Jody dressing daily, or more frequently as needed for contamination. Compression: Use double Tubigrip's to right leg daily. Off-loading: Avoid prolonged standing or dangling of feet. When seated, elevate feet at or above waist level. Work restrictions were updated on 12/29/2019 for patient to perform standing, walking, or seated work so long as appropriate and frequent breaks are given to allow for ambulation and/or elevation of feet. He is tolerating this well and this will be continued. Diet: Patient encouraged to increase protein and vitamin C intake while taking caution to avoid high carbohydrate and/or sugar intake. Labs/cultures/imaging: Wound cultures were positive for Morganella. Ampicillin was discontinued and patient was started on a 10-day course of Levaquin 500 mg daily which has since been completed. Lab results reviewed as noted above. Lower extremity arterial studies were completed 12/15/2019 (as noted above) and showed no evidence of significant arterial occlusive disease in the bilateral lower extremities. Tibia/fibula x-ray was negative for acute osseous abnormality. Follow-up: Return to clinic in 1 week for re-evaluation. Return sooner or report to the emergency room should symptoms worsen, or new symptoms arise. Note: [employer] speech recognition helper electrical software was used to create portions of this document. Sound-alike and misspelled words, as well as other helper electrical errors may be contained in the documentation. [id number]: [id number] Ivy subq tissue 20 sq cm/<
[2020-02-09 11:11] VITALS: BP 141/74; PULSE 86; RESP 16; TEMP 35.9; BMI 79.0
--- NOTE | 2020-02-09 13:31 | PCM.WC.PN ---
(1) Laceration of right lower leg Status: Chronic Code(s): S81.811A - Laceration without foreign body, right lower leg, initial encounter (2) Contusion of right lower leg Status: Chronic Code(s): S80.11XA - Contusion of right lower leg, initial encounter (3) Cellulitis of right lower leg Status: Resolved Code(s): L03.115 - Cellulitis of right lower limb Type of Wound Date of Service: 02/09/20 Chief Complaint: right lower leg wound History of Wound: The patient presented 11/24/2019 for evaluation and treatment of a right lower leg wound. This is a workers comp evaluation. The patient is employed at [employer]. On 11/02/2019, the patient was stepping to a platform while at work when he fell and suffered a laceration to his right lower leg. He was evaluated at [facility], and the laceration was approximated with kavita. He subsequently was seen at [facility] on 11/06/2019 and was placed on light work duty. At his follow-up appointment with [facility] on 11/14/2019, his kavita were removed. Dehiscence of the wound with surrounding erythema was noted, as well as swelling, tenderness and warmth at the wound site. He was started on a 10-day course of Keflex, and wound cultures were obtained. Aerobic cultures were positive for E. coli and he was placed on a course of ampicillin. The patient continues to work his position at [employer]. His job entails prolonged periods of standing. He was placed on restrictions for seated work only. On initial presentation, he continued to have redness, warmth, and tenderness of his right lower leg wound and surrounding area. Repeat wound cultures were collected 11/24/19 and were positive for Morganella; ampicillin was discontinued and patient was started on Levaquin 500 mg daily x10 days. Anaerobic cultures were negative. Lower extremity arterial studies were completed 12/15/2019 and showed the following: Right CORBY (PT) 1.20, (DP) 1.11, DBI 0.72; left CORBY (PT) 1.21, (DP) 1.23, DBI 0.89. Labs collected 11/30/2019 were significant for glucose 166, AST 42, ALT 81, prealbumin 45.5. CBC with differential, ESR, and CRP were normal. Tib-fib x-ray completed 11/30/2019 was negative for acute osseous abnormality. He had been cleansing the wound and surrounding area daily with soap and water and covering with clean gauze and Coban wrap at the time of initial evaluation. He was started on Santyl after initial evaluation. The patient denied any fever, chills, nausea, vomiting, or diarrhea. He denied any foul-smelling or purulent drainage from his wound. Progress of Wound: Patient's wound has improved. He reports compliance with the use of Aquacel Ag and double Tubigrip's. The erythema and irritation of the periwound area has improved slightly. It is unclear what the cause of this rash is, as the patient has used several different OTC dressings which he had been advised to discontinue. He reports he has been doing ambulatory duties while at work, and is tolerating these well. He completed a 10 day course of Levaquin. The patient denies any fever, chills, nausea, vomiting, or diarrhea. Denies increasing pain, redness, swelling, or drainage from affected area. - Physical Exam Vital Signs Temp Pulse Resp BP 96.7 F L 86 16 141/74 H 02/09/20 11:11 02/09/20 11:11 02/09/20 11:11 02/09/20 11:11 General: Alert, Cooperative, No apparent distress HEENT: Atraumatic, Normocephalic Oral: Moist Mucosa Neck: Supple Lungs: Normal air movement Cardiovascular: Regular rate Abdomen: Obese Extremities: No clubbing, No cyanosis, Capillary Refill Less than 3 Seconds, Edema - Trace edema of right lower extremity, Peripheral Pulses Normal Skin: Ulcer/ Wound - Right lower leg wound with fat layer exposed. No tunneling, undermining, or probing to bone. Small amount of slough and devitalized tissue present., Rash Present - Periulcer rash is slightly improved since last week. Wound Measurements and Assessment WC - Nurse 1 - General Ulcer Measurement Start: 01/26/20 09:50 Freq: Status: Active Protocol: Activity Type Activity Date Activity User E-Sign Co-Sign Detail Recorded Client Recorded Date Recorded By Document 02/09/20 11:11 MW [id number] 02/09/20 11:14 MW 02/09/20 11:11 Wound Center Nurse 1 [Ulcer Assessment] #1- R LOCO POST TRAUMA -Combined with other wound No -Current Size (cm) - Length 0.6 -Current Size (cm) - Width 0.3 -Current Size (cm) - Depth 0.2 -Total Square Cm 0.18 -Photo Taken No -Epithelialization None Present -Tunneling No -Undermining/Tunneling No -Circular Undermining No -Exudate Amt Small -Exudate Type Serosanguineous -Wound Margin Thickened & Rolled Under -Granulation Amt Small (1-33%) -Granulation Quality [place] -Slough/Fibrin Yes -Necrosis Amt Medium (34-66%) -Necrotic Tissue Type Adherent Slough -Structure Exposed N/A -Texture (Hailey-wound Skin Appearance) Assessed, Localized Edema ,Scarring -Moisture (Hailey-wound Skin Appearance No Abnormality, ) Assessed -Color (Hailey-wound Skin Appearance) Assessed, Erythema -Temperature (Hailey-wound Skin No Abnormality Appearance) (Pt Warm) -Tenderness on Palpation (Hailey-wound No Skin Appearance) -Ulcer Cleansing Rinsed/ Irrigated with Saline -Foul Odor after Cleansing No -Anesthetic Used 4% Lidocaine Solution [Edema Assessment] -Lower Limb Edema Present Yes -Right Calf (cm) 41.0 -Right Ankle (cm) 23.1 - Nurse 3 - General Ulcer D/C NN Start: 01/26/20 09:50 Freq: Status: Active Protocol: Activity Type Activity Date Activity User E-Sign Co-Sign Detail Recorded Client Recorded Date Recorded By Document 02/09/20 11:47 [facility] [id number] 02/09/20 11:48 [facility] 02/09/20 11:47 Wound Care Nurse 3 [Wound Dressing] #1- R LOCO POST TRAUMA -Primary Dressing Applied Other -Other Dressing puraply -Primary Dressing Covered/Secured Other with -Other Covering unna boot [Compression Applied] Right -Multi-Layered Wrap Application Unna Boot - Right ($) -Compression Wrap Unna Boot ($) ( single) [Post Procedure Tolerated] -Treatment Response Procedure Tolerated Well Pain Scale: 0-10 Numeric [Pain] -Is Patient Pain Free? Yes WC - Visit Discharge [Visit Discharge Information] -Discharge Condition Stable -Ambulatory Status Ambulatory -Transportation Private Auto Musculoskeletal: Tenderness - On debridement Psych/Mental Status: Normal Affect, Appropriate Debridement Note Post-Debridement Measurements/Treatment WC - Nurse 2 - General Ulcer CM Notes Start: 01/26/20 09:50 Freq: Status: Active Protocol: Activity Type Activity Date Activity User E-Sign Co-Sign Detail Recorded Client Recorded Date Recorded By Document 01/26/20 12:50 PL [id number] 01/26/20 12:53 PL Document 02/02/20 14:13 PL [id number] 02/02/20 14:14 PL 01/26/20 02/02/20 12:50 14:13 Wound Center Nurse 2 #1- R LOCO POST TRAUMA -Time 10:11 11:10 -Correct Patient Yes Yes -Correct Side, Site, Position Yes Yes -Correct Procedure Yes Yes -Procedure Performed Yes Yes -Type of Procedure Debridement Debridement -Clinical Debridement Subcutaneous Subcutaneous -Tissue Removed Subcutaneous Subcutaneous -Post Debridement (cm) - Length 2.9 2.9 -Post Debridement (cm) - Width 0.7 0.6 -Post Debridement (cm) - Depth 0.3 0.2 -Total Square (Post) (cm) 2.03 1.74 -Area of Debridement (cm) - Length 2.9 2.9 -Area of Debridement (cm) - Width 0.7 0.6 -Total Square (Area) (cm) 2.03 1.74 -Tunneling No No -Undermining/Tunneling No No -Circular Undermining No No -Wound/Ulcer Outcome Not Healed Not Healed -Ulcer Cleansing Rinsed/ Rinsed/ Irrigated with Irrigated with Saline Saline -Foul Odor after Cleansing No No -Bioengineered Tissue No No -Bleeding Controlled with Pressure -Treatment Response Procedure Tolerated Well -Debridement - Subq, 1st 20sq cm Yes Yes Pain Scale: 0-10 Numeric Is Patient Pain Free? Yes Yes - Nurse 3 - General Ulcer D/C NN Start: 01/26/20 09:50 Freq: Status: Active Protocol: Activity Type Activity Date Activity User E-Sign Co-Sign Detail Recorded Client Recorded Date Recorded By Document 01/26/20 12:50 PL [id number] 01/26/20 12:53 PL Document 02/02/20 11:24 DL [id number] 02/02/20 11:26 DL Document 02/09/20 11:47 BMF [id number] 02/09/20 11:48 BMF 01/26/20 02/02/20 02/09/20 12:50 11:24 11:47 Pain Scale: 0-10 Numeric Is Patient Pain Free? Yes Yes Yes Wound Care Nurse 3 #1- R LOCO POST TRAUMA -Ulcer Cleansing Rinsed/ Rinsed/ Irrigated with Irrigated with Saline Saline -Foul Odor after Cleansing No No -Primary Dressing Applied Aquacel AG 4x4 Promogran Other Jody Matter -Other Dressing puraply -Primary Dressing Covered/Secured with Dry Gauze & Dry Gauze, Other Roll Gauze, Secured with Secured with Tape Tape -Other Covering unna boot -Aquacel AG 4x4 1 -Promogran Jody Matter 1 Right -Multi-Layered Wrap Application Unna Boot - Right ($) -Compression Wrap Unna Boot ($) ( single) -Tubular Bandage Double Layer -Size of Tubigrip Used Size C -Size C ($) 2 Treatment Response Procedure Procedure Tolerated Well Tolerated Well Vital Signs Temperature (97.8 F-99.1 F) 97 F L Temperature Source Temporal Pulse Rate (60-100) 89 Pulse Location Monitor Respiratory Rate (12-18) 18 Respiratory rate source Observation Blood Pressure (90/60-120/80) 149/92 H Blood Pressure Mean (mm Hg) 111 Source Monitor WC - Visit Discharge Discharge Condition Stable Stable Stable Ambulatory Status Ambulatory Ambulatory Ambulatory Transportation Private Auto Private Auto Private Auto Clinical Summary of Care Provided Yes Wound debrided: Right loco Laterality: Right Type of Debridement: Excisional debridement Anesthesia Used: 5% Lidocaine Gel Depth: in the subcutaneous layer Percentage of wound debrided: 100 Instrument Used: 3mm curette Tissue Removed: Slough and devitalized tissue Severity: Fat Layer Exposed Amount of bleeding with debridement: Mild Bleeding Controlled with: Pressure Patient tolerated procedure well Assessment/Plan Active Problems Laceration of right lower leg (Chronic) Contusion of right lower leg (Chronic) Assessment: 1. Laceration of right lower leg. 2. Cellulitis of right lower leg. 3. Contusion of right lower leg Plan: Debridement performed today in clinic. Given the duration of the wound and failure of the wound to respond to standard wound care, we applied for advanced skin substitutes. The patient was approved for puraply, Nushield, and Apligraf. Approval from [facility] on patient's C9 request for advanced skin substitute application (CPT 87467) was obtained. Puraply #1 was applied today to the right loco ulcer. 100% of the product was used. An Unna boot was placed to the right lower extremity. At home wound-care instructions: Keep dressings and Unna boot in place for 1 week. Keep the Unna boot clean and dry. Cover when showering as directed. If at any time the Unna boot becomes painful, or you experience pain, numbness/tingling, or discoloration of the toes, contact the wound healing center or report to the emergency room for evaluation. Compression: Unna boot to right leg. Off-loading: Avoid prolonged standing or dangling of feet. When seated, elevate feet at or above waist level. Work restrictions were updated on 12/29/2019 for patient to perform standing, walking, or seated work so long as appropriate and frequent breaks are given to allow for ambulation and/or elevation of feet. He is tolerating this well and this will be continued. Diet: Patient encouraged to increase protein and vitamin C intake while taking caution to avoid high carbohydrate and/or sugar intake. Labs/cultures/imaging: Wound cultures were positive for Morganella. Ampicillin was discontinued and patient was started on a 10-day course of Levaquin 500 mg daily which has since been completed. Lab results reviewed as noted above. Lower extremity arterial studies were completed 12/15/2019 (as noted above) and showed no evidence of significant arterial occlusive disease in the bilateral lower extremities. Tibia/fibula x-ray was negative for acute osseous abnormality. Follow-up: Return to clinic in 1 week for re-evaluation. Return sooner or report to the emergency room should symptoms worsen, or new symptoms arise. Note: [employer] speech recognition account processor software was used to create portions of this document. Sound-alike and misspelled words, as well as other account processor errors may be contained in the documentation. [id number]: [id number] Skin sub graft trnk/arm/leg
[2020-02-16 09:43] VITALS: BP 151/82; PULSE 88; RESP 18; TEMP 36; BMI 79.0
--- NOTE | 2020-02-16 10:45 | PCM.WC.PN ---
(1) Laceration of right lower leg Status: Chronic Qualifiers: Encounter type: sequela Qualified Code(s): S81.811S - Laceration without foreign body, right lower leg, sequela Code(s): S81.811A - Laceration without foreign body, right lower leg, initial encounter (2) Contusion of right lower leg Status: Chronic Qualifiers: Encounter type: sequela Qualified Code(s): S80.11XS - Contusion of right lower leg, sequela Code(s): S80.11XA - Contusion of right lower leg, initial encounter Type of Wound Date of Service: 02/16/20 Chief Complaint: right lower leg wound History of Wound: The patient presented 11/24/2019 for evaluation and treatment of a right lower leg wound. This is a workers comp evaluation. The patient is employed at [employer]. On 11/02/2019, the patient was stepping to a platform while at work when he fell and suffered a laceration to his right lower leg. He was evaluated at [facility], and the laceration was approximated with kavita. He subsequently was seen at [facility] on 11/06/2019 and was placed on light work duty. At his follow-up appointment with [facility] on 11/14/2019, his kavita were removed. Dehiscence of the wound with surrounding erythema was noted, as well as swelling, tenderness and warmth at the wound site. He was started on a 10-day course of Keflex, and wound cultures were obtained. Aerobic cultures were positive for E. coli and he was placed on a course of ampicillin. The patient continues to work his position at [employer]. His job entails prolonged periods of standing. He was placed on restrictions for seated work only. On initial presentation, he continued to have redness, warmth, and tenderness of his right lower leg wound and surrounding area. Repeat wound cultures were collected 11/24/19 and were positive for Morganella; ampicillin was discontinued and patient was started on Levaquin 500 mg daily x10 days. Anaerobic cultures were negative. Lower extremity arterial studies were completed 12/15/2019 and showed the following: Right CORBY (PT) 1.20, (DP) 1.11, DBI 0.72; left CORBY (PT) 1.21, (DP) 1.23, DBI 0.89. Labs collected 11/30/2019 were significant for glucose 166, AST 42, ALT 81, prealbumin 45.5. CBC with differential, ESR, and CRP were normal. Tib-fib x-ray completed 11/30/2019 was negative for acute osseous abnormality. He had been cleansing the wound and surrounding area daily with soap and water and covering with clean gauze and Coban wrap at the time of initial evaluation. He was started on Santyl after initial evaluation. The patient denied any fever, chills, nausea, vomiting, or diarrhea. He denied any foul-smelling or purulent drainage from his wound. Progress of Wound: Patient's wound has improved significantly after 1 application of Purapply and he tolerated Unna boot compression well. He reports he has been doing ambulatory duties while at work, and is tolerating these well. He completed a 10 day course of Levaquin previously. The patient denies any fever, chills, nausea, vomiting, or diarrhea. Denies increasing pain, redness, swelling, or drainage from affected area. - Physical Exam Vital Signs Temp Pulse Resp BP 96.8 F L 88 18 151/82 H 02/16/20 09:43 02/16/20 09:43 02/16/20 09:43 02/16/20 09:43 General: Alert, Oriented x3, Cooperative, No apparent distress HEENT: Atraumatic, Normocephalic Oral: Moist Mucosa Extremities: Edema Skin: Ulcer/ Wound Wound Measurements and Assessment WC - Nurse 1 - General Ulcer Measurement Start: 01/26/20 09:50 Freq: Status: Active Protocol: Activity Type Activity Date Activity User E-Sign Co-Sign Detail Recorded Client Recorded Date Recorded By Document 02/16/20 09:43 [id number] 02/16/20 09:44 RB 02/16/20 09:43 Wound Center Nurse 1 [Ulcer Assessment] #1- R LOCO POST TRAUMA -Combined with other wound No -Current Size (cm) - Length 0.9 -Current Size (cm) - Width 0.4 -Current Size (cm) - Depth 0.1 -Total Square Cm 0.36 -Tunneling No -Undermining/Tunneling No -Circular Undermining No -Exudate Amt Small -Exudate Type Serosanguineous -Wound Margin Flat & Intact -Granulation Amt Medium (34-66%) -Granulation Quality [place] Addition -Slough/Fibrin Yes -Necrosis Amt Medium (34-66%) -Necrotic Tissue Type Adherent Slough -Structure Exposed N/A -Texture (Hailey-wound Skin Appearance) Scarring -Moisture (Hailey-wound Skin Appearance Assessed ) -Color (Hailey-wound Skin Appearance) Assessed -Temperature (Hailey-wound Skin No Abnormality Appearance) (Pt Warm) -Tenderness on Palpation (Hailey-wound No Skin Appearance) -Ulcer Cleansing Wound Cleanser -Foul Odor after Cleansing No -Anesthetic Used 4% Lidocaine Solution [Edema Assessment] -Lower Limb Edema Present Yes -Right Calf (cm) 41 -Right Ankle (cm) 23.2 WC - Nurse 2 - General Ulcer CM Notes Start: 01/26/20 09:50 Freq: Status: Active Protocol: Activity Type Activity Date Activity User E-Sign Co-Sign Detail Recorded Client Recorded Date Recorded By Document 02/16/20 10:31 PL [id number] 02/16/20 10:32 PL 02/16/20 10:31 Wound Center Nurse 2 [Procedure/Treatment] #1- R LOCO POST TRAUMA -Time 09:53 -Correct Patient Yes -Correct Side, Site, Position Yes -Correct Procedure Yes -Procedure Performed Yes -Type of Procedure Debridement -Clinical Debridement Subcutaneous -Tissue Removed Subcutaneous -Post Debridement (cm) - Length 0.7 -Post Debridement (cm) - Width 0.3 -Post Debridement (cm) - Depth 0.2 -Total Square (Post) (cm) 0.21 -Area of Debridement (cm) - Length 0.7 -Area of Debridement (cm) - Width 0.3 -Total Square (Area) (cm) 0.21 -Tunneling No -Undermining/Tunneling No -Circular Undermining No -Wound/Ulcer Outcome Not Healed -Ulcer Cleansing Rinsed/ Irrigated with Saline -Foul Odor after Cleansing No -Bioengineered Tissue No -Debridement - Subq, 1st 20sq cm No [See Physician Procedure note for Specifics] Pain Scale: 0-10 Numeric [Pain] -Is Patient Pain Free? Yes - Nurse 3 - General Ulcer D/C NN Start: 01/26/20 09:50 Freq: Status: Active Protocol: Activity Type Activity Date Activity User E-Sign Co-Sign Detail Recorded Client Recorded Date Recorded By Document 02/16/20 10:17 DL [id number] 02/16/20 10:18 DL 02/16/20 10:17 Wound Care Nurse 3 [Wound Dressing] #1- R LOCO POST TRAUMA -Foul Odor after Cleansing No -Other Dressing graft/veil/ster strips -Primary Dressing Covered/Secured Dry Gauze with -Other Covering unna boot [Compression Applied] Right -Multi-Layered Wrap Application Unna Boot - Right ($) -Compression Wrap Unna Boot ($) ( single) [Post Procedure Tolerated] -Treatment Response Procedure Tolerated Well WC - Visit Discharge [Visit Discharge Information] -Discharge Condition Stable -Ambulatory Status Ambulatory -Transportation Private Auto Psych/Mental Status: Normal Affect, Appropriate Debridement Note Post-Debridement Measurements/Treatment WC - Nurse 2 - General Ulcer CM Notes Start: 01/26/20 09:50 Freq: Status: Active Protocol: Activity Type Activity Date Activity User E-Sign Co-Sign Detail Recorded Client Recorded Date Recorded By Document 01/26/20 12:50 PL [id number] 01/26/20 12:53 PL Document 02/02/20 14:13 PL [id number] 02/02/20 14:14 PL Document 02/09/20 15:34 PL [id number] 02/09/20 15:38 PL Document 02/16/20 10:31 PL [id number] 02/16/20 10:32 PL 01/26/20 02/02/20 02/09/20 12:50 14:13 15:34 Wound Center Nurse 2 #1- R LOCO POST TRAUMA -Time 10:11 11:10 11:20 -Correct Patient Yes Yes Yes -Correct Side, Site, Position Yes Yes Yes -Correct Procedure Yes Yes Yes -Procedure Performed Yes Yes Yes -Type of Procedure Debridement Debridement Debridement -Clinical Debridement Subcutaneous Subcutaneous Subcutaneous -Tissue Removed Subcutaneous Subcutaneous Subcutaneous -Post Debridement (cm) - Length 2.9 2.9 1.5 -Post Debridement (cm) - Width 0.7 0.6 0.4 -Post Debridement (cm) - Depth 0.3 0.2 0.2 -Total Square (Post) (cm) 2.03 1.74 0.60 -Area of Debridement (cm) - Length 2.9 2.9 1.5 -Area of Debridement (cm) - Width 0.7 0.6 0.4 -Total Square (Area) (cm) 2.03 1.74 0.60 -Tunneling No No No -Undermining/Tunneling No No No -Circular Undermining No No No -Wound/Ulcer Outcome Not Healed Not Healed Not Healed -Ulcer Cleansing Rinsed/ Rinsed/ Rinsed/ Irrigated with Irrigated with Irrigated with Saline Saline Saline -Foul Odor after Cleansing No No No -Bioengineered Tissue No No Yes -Type of Bioengineered Tissue PuraPly AM Disc -Expiration Date 08/12/21 -Product Lot Number [id number] -Percent Used 100 -Saline Lot Number [id number] -Bleeding Controlled with Pressure Pressure -Treatment Response Procedure Procedure Tolerated Well Tolerated Well -Debridement - Subq, 1st 20sq cm Yes Yes No -Apply Skin Sub - 1st 25 sq cm - Legs 1 -PuraPly AM 16mm Disc (per sq cm) 2 Pain Scale: 0-10 Numeric Is Patient Pain Free? Yes Yes Yes 02/16/20 10:31 Wound Center Nurse 2 #1- R LOCO POST TRAUMA -Time 09:53 -Correct Patient Yes -Correct Side, Site, Position Yes -Correct Procedure Yes -Procedure Performed Yes -Type of Procedure Debridement -Clinical Debridement Subcutaneous -Tissue Removed Subcutaneous -Post Debridement (cm) - Length 0.7 -Post Debridement (cm) - Width 0.3 -Post Debridement (cm) - Depth 0.2 -Total Square (Post) (cm) 0.21 -Area of Debridement (cm) - Length 0.7 -Area of Debridement (cm) - Width 0.3 -Total Square (Area) (cm) 0.21 -Tunneling No -Undermining/Tunneling No -Circular Undermining No -Wound/Ulcer Outcome Not Healed -Ulcer Cleansing Rinsed/ Irrigated with Saline -Foul Odor after Cleansing No -Bioengineered Tissue No -Type of Bioengineered Tissue -Expiration Date -Product Lot Number -Percent Used -Saline Lot Number -Bleeding Controlled with -Treatment Response -Debridement - Subq, 1st 20sq cm No -Apply Skin Sub - 1st 25 sq cm - Legs -PuraPly AM 16mm Disc (per sq cm) Pain Scale: 0-10 Numeric Is Patient Pain Free? Yes WC - Nurse 3 - General Ulcer D/C NN Start: 01/26/20 09:50 Freq: Status: Active Protocol: Activity Type Activity Date Activity User E-Sign Co-Sign Detail Recorded Client Recorded Date Recorded By Document 01/26/20 12:50 PL [id number] 01/26/20 12:53 PL Document 02/02/20 11:24 DL [id number] 02/02/20 11:26 DL Document 02/09/20 11:47 BMF [id number] 02/09/20 11:48 BMF Document 02/16/20 10:17 DL [id number] 02/16/20 10:18 DL 01/26/20 02/02/20 02/09/20 12:50 11:24 11:47 Pain Scale: 0-10 Numeric Is Patient Pain Free? Yes Yes Yes Wound Care Nurse 3 #1- R LOCO POST TRAUMA -Ulcer Cleansing Rinsed/ Rinsed/ Irrigated with Irrigated with Saline Saline -Foul Odor after Cleansing No No -Primary Dressing Applied Aquacel AG 4x4 Promogran Other Jody Matter -Other Dressing puraply -Primary Dressing Covered/Secured with Dry Gauze & Dry Gauze, Other Roll Gauze, Secured with Secured with Tape Tape -Other Covering unna boot -Aquacel AG 4x4 1 -Promogran Jody Matter 1 Right -Multi-Layered Wrap Application Unna Boot - Right ($) -Compression Wrap Unna Boot ($) ( single) -Tubular Bandage Double Layer -Size of Tubigrip Used Size C -Size C ($) 2 Treatment Response Procedure Procedure Tolerated Well Tolerated Well Vital Signs Temperature (97.8 F-99.1 F) 97 F L Temperature Source Temporal Pulse Rate (60-100) 89 Pulse Location Monitor Respiratory Rate (12-18) 18 Respiratory rate source Observation Blood Pressure (90/60-120/80) 149/92 H Blood Pressure Mean (mm Hg) 111 Source Monitor WC - Visit Discharge Discharge Condition Stable Stable Stable Ambulatory Status Ambulatory Ambulatory Ambulatory Transportation Private Auto Private Auto Private Auto Clinical Summary of Care Provided Yes 02/16/20 10:17 Pain Scale: 0-10 Numeric Is Patient Pain Free? Wound Care Nurse 3 #1- R LOCO POST TRAUMA -Ulcer Cleansing -Foul Odor after Cleansing No -Primary Dressing Applied -Other Dressing graft/veil/ster strips -Primary Dressing Covered/Secured with Dry Gauze -Other Covering unna boot -Aquacel AG 4x4 -Promogran Jody Matter Right -Multi-Layered Wrap Application Unna Boot - Right ($) -Compression Wrap Unna Boot ($) ( single) -Tubular Bandage -Size of Tubigrip Used -Size C ($) Treatment Response Procedure Tolerated Well Vital Signs Temperature (97.8 F-99.1 F) Temperature Source Pulse Rate (60-100) Pulse Location Respiratory Rate (12-18) Respiratory rate source Blood Pressure (90/60-120/80) Blood Pressure Mean (mm Hg) Source WC - Visit Discharge Discharge Condition Stable Ambulatory Status Ambulatory Transportation Private Auto Clinical Summary of Care Provided Wound debrided: Right loco post-trauma Laterality: Right Type of Debridement: Excisional debridement Anesthesia Used: 4% Lidocaine Solution Depth: Down to and including healthy tissue, in the subcutaneous layer Percentage of wound debrided: 100 Instrument Used: 3mm curette Tissue Removed: Yellow slough, devitalized tissue Severity: Fat Layer Exposed Amount of bleeding with debridement: Mild Bleeding Controlled with: Compression and gauze Patient tolerated procedure well Assessment/Plan Active Problems Laceration of right lower leg (Chronic) Contusion of right lower leg (Chronic) Assessment: 1. Laceration of right lower leg. 2. Cellulitis of right lower leg. 3. Contusion of right lower leg Plan: Debridement performed today in clinic. Given the duration of the wound and failure of the wound to respond to standard wound care, we applied for advanced skin substitutes. The patient was approved for puraply, Nushield, and Apligraf. Approval from [facility] on patient's C9 request for advanced skin substitute application (CPT 18998) was obtained. Significant improvement seen and minimal slough present. Nu-shield was applied to the remaining area of the wound per media relations director guidelines and covered with wound veil and secured with steri-strips. 100% of the product was used. An Unna boot was placed to the right lower extremity. At home wound-care instructions: Keep dressings and Unna boot in place for 1 week. Keep the Unna boot clean and dry. Cover when showering as directed. If at any time the Unna boot becomes painful, or you experience pain, numbness/tingling, or discoloration of the toes, contact the wound healing center or report to the emergency room for evaluation. Compression: Unna boot to right leg. Off-loading: Avoid prolonged standing or dangling of feet. When seated, elevate feet at or above waist level. Work restrictions were updated on 12/29/2019 for patient to perform standing, walking, or seated work so long as appropriate and frequent breaks are given to allow for ambulation and/or elevation of feet. He is tolerating this well and this will be continued. Diet: Patient encouraged to increase protein and vitamin C intake while taking caution to avoid high carbohydrate and/or sugar intake. Labs/cultures/imaging: Wound cultures were positive for Morganella. Ampicillin was discontinued and patient was started on a 10-day course of Levaquin 500 mg daily which has since been completed. Lab results reviewed as noted above. Lower extremity arterial studies were completed 12/15/2019 (as noted above) and showed no evidence of significant arterial occlusive disease in the bilateral lower extremities. Tibia/fibula x-ray was negative for acute osseous abnormality. Follow-up: Return to clinic in 1 week for re-evaluation. Return sooner or report to the emergency room should symptoms worsen, or new symptoms arise. Note: MD [employer] speech recognition cigar tobacco processing supervisor software was used to create portions of this document. Sound-alike and misspelled words, as well as other cigar tobacco processing supervisor errors may be contained in the documentation.
== END 2020-02-19 23:59 ==
LOC: WC 09:30
PROVIDERS: Referring Provider Family Medicine; Visit Provider Nurse Practitioner Family
DX: S81.811A Laceration without foreign body, right lower leg, initial encounter (principal); W17.89XA Other fall from one level to another, initial encounter; Y93.89 Activity, other specified; Y92.89 Other specified places as the place of occurrence of the external cause; Y99.0 Civilian activity done for income or pay
CPT/HCPCS: 11042; 15271; 29580; Q4160; Q4196

== ENCOUNTER 2020-03-08 09:00 | Outpatient (RCR) | payer OTHER, SELFPAY ==
[2020-02-20 00:13] VITALS: BP 151/82; PULSE 88; RESP 18; TEMP 36
[2020-02-23 09:53] VITALS: BP 197/104; PULSE 93; RESP 16; TEMP 37; BMI 79.0
--- NOTE | 2020-02-23 13:01 | PCM.WC.PN ---
(1) Laceration of right lower leg Status: Chronic Qualifiers: Code(s): S81.811A - Laceration without foreign body, right lower leg, initial encounter (2) Contusion of right lower leg Status: Chronic Qualifiers: Code(s): S80.11XA - Contusion of right lower leg, initial encounter (3) Cellulitis of right lower leg Status: Resolved Code(s): L03.115 - Cellulitis of right lower limb Type of Wound Date of Service: 02/23/20 Chief Complaint: right lower leg wound History of Wound: The patient presented 11/24/2019 for evaluation and treatment of a right lower leg wound. This is a workers comp evaluation. The patient is employed at [employer]. On 11/02/2019, the patient was stepping to a platform while at work when he fell and suffered a laceration to his right lower leg. He was evaluated at [facility], and the laceration was approximated with kavita. He subsequently was seen at [facility] on 11/06/2019 and was placed on light work duty. At his follow-up appointment with [facility] on 11/14/2019, his kavita were removed. Dehiscence of the wound with surrounding erythema was noted, as well as swelling, tenderness and warmth at the wound site. He was started on a 10-day course of Keflex, and wound cultures were obtained. Aerobic cultures were positive for E. coli and he was placed on a course of ampicillin. The patient continues to work his position at [employer]. His job entails prolonged periods of standing. He was placed on restrictions for seated work only. On initial presentation, he continued to have redness, warmth, and tenderness of his right lower leg wound and surrounding area. Repeat wound cultures were collected 11/24/19 and were positive for Morganella; ampicillin was discontinued and patient was started on Levaquin 500 mg daily x10 days. Anaerobic cultures were negative. Lower extremity arterial studies were completed 12/15/2019 and showed the following: Right CORBY (PT) 1.20, (DP) 1.11, DBI 0.72; left CORBY (PT) 1.21, (DP) 1.23, DBI 0.89. Labs collected 11/30/2019 were significant for glucose 166, AST 42, ALT 81, prealbumin 45.5. CBC with differential, ESR, and CRP were normal. Tib-fib x-ray completed 11/30/2019 was negative for acute osseous abnormality. He had been cleansing the wound and surrounding area daily with soap and water and covering with clean gauze and Coban wrap at the time of initial evaluation. He was started on Santyl after initial evaluation. The patient denied any fever, chills, nausea, vomiting, or diarrhea. He denied any foul-smelling or purulent drainage from his wound. Progress of Wound: Patient's wound has improved significantly after 1 application of Purapply and 1 application of Nushield. He tolerated Unna boot compression well and his right lower extremity irritation has improved with use. He reports he has been doing ambulatory duties while at work, and is tolerating these well. He completed a 10 day course of Levaquin previously. The patient denies any fever, chills, nausea, vomiting, or diarrhea. Denies increasing pain, redness, swelling, or drainage from affected area. - Physical Exam Vital Signs Temp Pulse Resp BP 98.6 F 93 16 197/104 H 02/23/20 09:53 02/23/20 09:53 02/23/20 09:53 02/23/20 09:53 General: Alert, Cooperative, No apparent distress HEENT: Atraumatic, Normocephalic Oral: Moist Mucosa Neck: Supple Lungs: Normal air movement Cardiovascular: Regular rate Extremities: No clubbing, No cyanosis, No edema, Capillary Refill Less than 3 Seconds, Peripheral Pulses Normal Skin: Ulcer/ Wound - RLE ulcer with subcutaneous layer exposed. Small amount of slough and devitalized tissue present. No drainage. No periulcer erythema or warmth., Rash Present - Mild irritation of periulcer area is still present, but continues to improve. Wound Measurements and Assessment WC - Nurse 1 - General Ulcer Measurement Start: 02/23/20 09:52 Freq: Status: Active Protocol: Activity Type Activity Date Activity User E-Sign Co-Sign Detail Recorded Client Recorded Date Recorded By Document 02/23/20 09:53 [facility] [id number] 02/23/20 10:00 [facility] 02/23/20 09:53 Wound Center Nurse 1 [Ulcer Assessment] #1- R LOCO POST TRAUMA -Combined with other wound No -Current Size (cm) - Length 0.1 -Current Size (cm) - Width 0.1 -Current Size (cm) - Depth 0.1 -Total Square Cm 0.01 -Photo Taken No -Epithelialization None Present -Tunneling No -Undermining/Tunneling No -Circular Undermining No -Exudate Amt None Present -Wound Margin Distinct, Outline Attached -Granulation Amt None Present (0 %) -Slough/Fibrin Yes -Necrosis Amt Large (67-100%) -Necrotic Tissue Type Adherent Slough -Texture (Hailey-wound Skin Appearance) Assessed, Scarring -Moisture (Hailey-wound Skin Appearance Assessed ) -Color (Hailey-wound Skin Appearance) Assessed -Temperature (Hailey-wound Skin No Abnormality Appearance) (Pt Warm) -Tenderness on Palpation (Hailey-wound No Skin Appearance) -Ulcer Cleansing soapy water -Foul Odor after Cleansing No -Anesthetic Used 5% Lidocaine Gel [Edema Assessment] -Right Calf (cm) 40.2 -Right Ankle (cm) 23.2 WC - Nurse 3 - General Ulcer D/C NN Start: 02/23/20 09:52 Freq: Status: Active Protocol: Activity Type Activity Date Activity User E-Sign Co-Sign Detail Recorded Client Recorded Date Recorded By Document 02/23/20 10:39 [facility] [id number] 02/23/20 10:40 [facility] 02/23/20 10:39 Wound Care Nurse 3 [Wound Dressing] #1- R LOCO POST TRAUMA -Primary Dressing Applied Other -Other Dressing nushield -Primary Dressing Covered/Secured Other with -Other Covering unna boot [Compression Applied] Right -Multi-Layered Wrap Application Unna Boot - Right ($) [Post Procedure Tolerated] -Treatment Response Procedure Tolerated Well Pain Scale: 0-10 Numeric [Pain] -Is Patient Pain Free? Yes - Visit Discharge [Visit Discharge Information] -Discharge Condition Stable -Ambulatory Status Ambulatory -Transportation Private Auto Psych/Mental Status: Normal Affect, Appropriate Debridement Note Post-Debridement Measurements/Treatment - Nurse 3 - General Ulcer D/C NN Start: 02/23/20 09:52 Freq: Status: Active Protocol: Activity Type Activity Date Activity User E-Sign Co-Sign Detail Recorded Client Recorded Date Recorded By Document 02/23/20 10:39 [facility] [id number] 02/23/20 10:40 [facility] 02/23/20 10:39 Wound Care Nurse 3 #1- R LOCO POST TRAUMA -Primary Dressing Applied Other -Other Dressing nushield -Primary Dressing Covered/Secured with Other -Other Covering unna boot Right -Multi-Layered Wrap Application Unna Boot - Right ($) Treatment Response Procedure Tolerated Well Pain Scale: 0-10 Numeric Is Patient Pain Free? Yes WC - Visit Discharge Discharge Condition Stable Ambulatory Status Ambulatory Transportation Private Auto Wound debrided: Right loco Laterality: Right Type of Debridement: Excisional debridement Anesthesia Used: 5% Lidocaine Gel, Cetacaine Depth: in the subcutaneous layer Percentage of wound debrided: 100 Instrument Used: 3mm curette, Forceps Tissue Removed: Slough and devitalized tissue Severity: Fat Layer Exposed Amount of bleeding with debridement: Mild Bleeding Controlled with: Pressure Patient tolerated procedure well Assessment/Plan Assessment: 1. Laceration of right lower leg. 2. Cellulitis of right lower leg. 3. Contusion of right lower leg Plan: Debridement performed today in clinic. Given the duration of the wound and failure of the wound to respond to standard wound care, we applied for advanced skin substitutes. The patient was approved for puraply, Nushield, and Apligraf. Approval from [facility] on patient's C9 request for advanced skin substitute application (CPT 16917) was obtained. Significant improvement seen and minimal slough present. Nu-shield #2 was applied per radio broadcaster guidelines and covered with wound veil and secured with steri-strips. 100% of the product was used. (This is patients 3rd application of an advanced skin substitute. An Unna boot was placed to the right lower extremity. At home wound-care instructions: Keep dressings and Unna boot in place for 1 week. Keep the Unna boot clean and dry. Cover when showering as directed. If at any time the Unna boot becomes painful, or you experience pain, numbness/tingling, or discoloration of the toes, contact the wound healing center or report to the emergency room for evaluation. Compression: Unna boot to right leg. Off-loading: Avoid prolonged standing or dangling of feet. When seated, elevate feet at or above waist level. Work restrictions were updated on 12/29/2019 for patient to perform standing, walking, or seated work so long as appropriate and frequent breaks are given to allow for ambulation and/or elevation of feet. He is tolerating this well and this will be continued. Diet: Patient encouraged to increase protein and vitamin C intake while taking caution to avoid high carbohydrate and/or sugar intake. Labs/cultures/imaging: Wound cultures were positive for Morganella. Ampicillin was discontinued and patient was started on a 10-day course of Levaquin 500 mg daily which has since been completed. Lab results reviewed as noted above. Lower extremity arterial studies were completed 12/15/2019 (as noted above) and showed no evidence of significant arterial occlusive disease in the bilateral lower extremities. Tibia/fibula x-ray was negative for acute osseous abnormality. Follow-up: Return to clinic in 1 week for removal and re-application of Unna boot (nurse visit). Nushield may be left in place for 2 weeks if needed and if tolerated well. Return for a provider visit in 2 weeks. Return sooner or report to the emergency room should symptoms worsen, or new symptoms arise. Note: [employer] speech recognition director oracle software was used to create portions of this document. Sound-alike and misspelled words, as well as other director oracle errors may be contained in the documentation. [id number]: [id number] Skin sub graft trnk/arm/leg
[2020-03-01 09:45] VITALS: BP 146/86; PULSE 88; RESP 18; TEMP 36.4; BMI 79.0
--- NOTE | 2020-03-01 09:47 | WC ---
marcie perez [employer]YWALL APPLICATION SUPERVISOR to room to view pt wound and nushield . Marcie reapplied veill and steristrips reapplied then unna boot applied per RLE
[2020-03-08 09:21] VITALS: BP 145/112; PULSE 92; TEMP 35.9; BMI 79.0
--- NOTE | 2020-03-08 13:59 | PN.PCM_ITS ---
(1) Laceration of right lower leg Status: Chronic Qualifiers: Code(s): S81.811A - Laceration without foreign body, right lower leg, initial encounter (2) Contusion of right lower leg Status: Chronic Qualifiers: Code(s): S80.11XA - Contusion of right lower leg, initial encounter (3) Cellulitis of right lower leg Status: Resolved Code(s): L03.115 - Cellulitis of right lower limb Type of Wound Date of Service: 03/08/20 Chief Complaint: right lower leg wound History of Wound: The patient presented 11/24/2019 for evaluation and treatment of a right lower leg wound. This is a workers comp evaluation. The patient is employed at [employer]. On 11/02/2019, the patient was stepping to a platform while at work when he fell and suffered a laceration to his right lower leg. He was evaluated at [facility], and the laceration was approximated with kavita. He subsequently was seen at [facility] on 11/06/2019 and was placed on light work duty. At his follow-up appointment with [facility] on 11/14/2019, his kavita were removed. Dehiscence of the wound with surrounding erythema was noted, as well as swelling, tenderness and warmth at the wound site. He was started on a 10-day course of Keflex, and wound cultures were obtained. Aerobic cultures were positive for E. coli and he was placed on a course of ampicillin. The patient continues to work his position at [employer]. His job entails prolonged periods of standing. He was placed on restrictions for seated work only. On initial presentation, he continued to have redness, warmth, and tenderness of his right lower leg wound and surrounding area. Repeat wound cultures were collected 11/24/19 and were positive for Morganella; ampicillin was discontinued and patient was started on Levaquin 500 mg daily x10 days. Anaerobic cultures were negative. Lower extremity arterial studies were completed 12/15/2019 and showed the following: Right CORBY (PT) 1.20, (DP) 1.11, DBI 0.72; left CORBY (PT) 1.21, (DP) 1.23, DBI 0.89. Labs collected 11/30/2019 were significant for glucose 166, AST 42, ALT 81, prealbumin 45.5. CBC with differential, ESR, and CRP were normal. Tib-fib x-ray completed 11/30/2019 was negative for acute osseous abnormality. He had been cleansing the wound and surrounding area daily with soap and water and covering with clean gauze and Coban wrap at the time of initial evaluation. He was started on Santyl after initial evaluation. The patient denied any fever, chills, nausea, vomiting, or diarrhea. He denied any foul-smelling or purulent drainage from his wound. Progress of Wound: The patient's right loco ulcer is healed today. - Physical Exam Vital Signs Temp Pulse Resp BP 96.6 F L 92 18 145/112 H 03/08/20 09:21 03/08/20 09:21 03/01/20 09:45 03/08/20 09:21 General: Alert, Cooperative, No apparent distress HEENT: Atraumatic, Normocephalic Oral: Moist Mucosa Neck: Supple, Trachea Midline Lungs: Normal air movement Extremities: No clubbing, No cyanosis, No edema, Capillary Refill Less than 3 Seconds, Peripheral Pulses Normal Skin: Ulcer/ Wound - Right loco ulcer healed today Wound Measurements and Assessment WC - Nurse 1 - General Ulcer Measurement Start: 02/23/20 09:52 Freq: Status: Discharge Protocol: Activity Type Activity Date Activity User E-Sign Co-Sign Detail Recorded Client Recorded Date Recorded By Document 03/08/20 09:21 KR [id number] 03/08/20 09:30 KR Edit Status 03/08/20 10:27 WINDY DADIDI Active=>Discharge [id number] 03/08/20 10:27 WINDY TUCKER 03/08/20 09:21 Wound Center Nurse 1 [Ulcer Assessment] #1- R LOCO POST TRAUMA -Current Size (cm) - Length 1.1 -Current Size (cm) - Width 1.6 -Current Size (cm) - Depth 0.1 -Total Square Cm 1.76 -Exudate Amt None Present -Wound Margin Distinct, Outline Attached -Granulation Amt Small (1-33%) -Granulation Quality Rule -Necrosis Amt Small (1-33%) -Necrotic Tissue Type Adherent Slough -Texture (Hailey-wound Skin Appearance) Assessed, Scarring -Moisture (Hailey-wound Skin Appearance Assessed,Dry/ ) Scaly -Color (Hailey-wound Skin Appearance) No Abnormality, Assessed -Temperature (Hailey-wound Skin No Abnormality Appearance) (Pt Warm) -Tenderness on Palpation (Hailey-wound No Skin Appearance) -Ulcer Cleansing SOAP AND WATER -Foul Odor after Cleansing No -Anesthetic Used 4% Lidocaine Solution [Edema Assessment] -Right Calf (cm) 41 -Right Ankle (cm) 25 - Nurse 2 - General Ulcer CM Notes Start: 02/23/20 09:52 Freq: Status: Discharge Protocol: Activity Type Activity Date Activity User E-Sign Co-Sign Detail Recorded Client Recorded Date Recorded By Edit Status 03/08/20 10:27 BKG DAEMON Active=>Discharge [facility]-BG11 03/08/20 10:27 BKG DAEMON - Nurse 3 - General Ulcer D/C NN Start: 02/23/20 09:52 Freq: Status: Discharge Protocol: Activity Type Activity Date Activity User E-Sign Co-Sign Detail Recorded Client Recorded Date Recorded By Document 03/08/20 10:19 [facility] [id number] 03/08/20 10:20 [facility] Edit Status 03/08/20 10:27 BKG DAEMON Active=>Discharge [id number] 03/08/20 10:27 BKG DAEMON 03/08/20 10:19 Wound Care Nurse 3 [Wound Dressing] #1- R LOCO POST TRAUMA -Ulcer Cleansing Rinsed/ Irrigated with Saline -Foul Odor after Cleansing No -Primary Dressing Applied C Hydrogel ($) -Primary Dressing Covered/Secured Dry Gauze, with Secured with Tape [Post Procedure Tolerated] -Treatment Response Procedure Tolerated Well Pain Scale: 0-10 Numeric [Pain] -Is Patient Pain Free? Yes - Visit Discharge [Visit Discharge Information] -Discharge Condition Stable -Ambulatory Status Ambulatory -Transportation Private Auto Musculoskeletal: No Tenderness to Palpation of Joints or Extremities Psych/Mental Status: Normal Affect, Appropriate Debridement Note Post-Debridement Measurements/Treatment - Nurse 2 - General Ulcer CM Notes Start: 02/23/20 09:52 Freq: Status: Discharge Protocol: Activity Type Activity Date Activity User E-Sign Co-Sign Detail Recorded Client Recorded Date Recorded By Document 02/23/20 13:01 [id number] 02/23/20 13:05 PL 02/23/20 13:01 Wound Center Nurse 2 #1- R LOCO POST TRAUMA -Time 10:07 -Correct Patient Yes -Correct Side, Site, Position Yes -Correct Procedure Yes -Procedure Performed Yes -Type of Procedure Debridement -Clinical Debridement Subcutaneous -Tissue Removed Subcutaneous -Post Debridement (cm) - Length 0.8 -Post Debridement (cm) - Width 0.2 -Post Debridement (cm) - Depth 0.2 -Total Square (Post) (cm) 0.16 -Area of Debridement (cm) - Length 0.8 -Area of Debridement (cm) - Width 0.2 -Total Square (Area) (cm) 0.16 -Tunneling No -Undermining/Tunneling No -Circular Undermining No -Wound/Ulcer Outcome Not Healed -Ulcer Cleansing Rinsed/ Irrigated with Saline -Foul Odor after Cleansing No -Bioengineered Tissue Yes -Type of Bioengineered Tissue NuShield Disc -Expiration Date 06/03/24 -Product Lot Number [id number] -Percent Used 100 -Saline Lot Number [id number] -Bleeding Controlled with Pressure -Treatment Response Procedure Tolerated Well -Debridement - Subq, 1st 20sq cm No -Apply Skin Sub - 1st 25 sq cm - Legs 1 -NuShield 16mm Disc 2 Pain Scale: 0-10 Numeric Is Patient Pain Free? Yes WC - Nurse 3 - General Ulcer D/C NN Start: 02/23/20 09:52 Freq: Status: Discharge Protocol: Activity Type Activity Date Activity User E-Sign Co-Sign Detail Recorded Client Recorded Date Recorded By Document 02/23/20 10:39 [facility] [id number] 02/23/20 10:40 [facility] Document 03/01/20 09:45 RB [id number] 03/01/20 09:48 RB Document 03/08/20 10:19 [facility] [id number] 03/08/20 10:20 [facility] 02/23/20 03/01/20 03/08/20 10:39 09:45 10:19 Wound Care Nurse 3 #1- R LOCO POST TRAUMA -Ulcer Cleansing Rinsed/ Irrigated with Saline -Foul Odor after Cleansing No -Primary Dressing Applied Other C Hydrogel ($) -Other Dressing nushield -Primary Dressing Covered/Secured with Other Dry Gauze Dry Gauze, Secured with Tape -Other Covering unna boot Right -Multi-Layered Wrap Application Unna Boot - Unna Boot - Right ($) Right ($) Treatment Response Procedure Procedure Procedure Tolerated Well Tolerated Well Tolerated Well Vital Signs Temperature (97.8 F-99.1 F) 97.5 F L Temperature Source Temporal Pulse Rate (60-100) 88 Pulse Location Monitor Respiratory Rate (12-18) 18 Respiratory rate source Observation Blood Pressure (90/60-120/80) 146/86 H Blood Pressure Mean (mm Hg) 106 Source Monitor Position Semi-Fowlers Blood Pressure Location Left Arm Pain Scale: 0-10 Numeric Is Patient Pain Free? Yes Yes Yes WC - Visit Discharge Discharge Condition Stable Stable Stable Ambulatory Status Ambulatory Ambulatory Ambulatory Transportation Private Auto Private Auto Private Auto Medication Reconcilliation completed & No provided to patient/care provider Clinical Summary of Care Provided Yes 03/01/20 09:47 Wound Center by Lisset Merrill HEEL SEWER to room to view pt wound and nushield . Samantha reapplied veill and steristrips reapplied then unna boot applied per RLE Initialized on 03/01/20 09:47 - END OF NOTE No debridement was completed today Assessment/Plan Active Problems Laceration of right lower leg (Chronic) Contusion of right lower leg (Chronic) Assessment: 1. Laceration of right lower leg. 2. Cellulitis of right lower leg. 3. Contusion of right lower leg Plan: The patient's right loco ulcer is healed today. He will be given hydrogel to apply daily to the affected area of his right loco to help protect and strengthen new tissue. He is discharged from the wound center today and released to full work duties. An updated [employer] 14 was completed. The patient may follow-up with the Wound Healing Center on an as-needed basis should new wounds occur. Note: [employer] speech recognition business management professor software was used to create portions of this document. Sound-alike and misspelled words, as well as other business management professor errors may be contained in the documentation. Office Visits / Consults: [id number] OV L3 Est
== END 2020-03-08 10:26 | disposition home or self-care (01) ==
LOC: WC 09:00
PROVIDERS: Referring Provider Family Medicine; Visit Provider Nurse Practitioner Family
DX: L97.812 Non-pressure chronic ulcer of other part of right lower leg with fat layer exposed (principal); S81.811S Laceration without foreign body, right lower leg, sequela; W17.89XS Other fall from one level to another, sequela
CPT/HCPCS: 15271; 29580; 99212; Q4160; G0463

== ENCOUNTER 2022-08-09 14:42 | Emergency (ER) | payer OTHER, SELFPAY ==
[2022-08-09 14:43] VITALS: BP 130/88; PULSE 86; RESP 18; TEMP 36.5; O2SAT 98; BMI 32.4
--- NOTE | 2022-08-09 15:05 | ED.VIS.LOWEX ---
HPI History of Present Illness Chief Complaint: Lower Extremity Injury Narrative Narrative: 61-year-old male presenting with right hip pain. This is an ongoing issue that he has had for a couple of months. Has been seeing a chiropractor. He states this is not really helping. He also reports has been doing laser therapy through his chiropractor and states he is unsure if this is helping. Last month he bought an inversion table and has been doing that daily for the last 3 days but gave it up about 5 days ago because he thinks that straining his right thigh. He can walk. Denies any direct trauma. 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 He is not claiming Worker's Comp. however. He states ibuprofen and Tylenol are not helping. He also reports that he was able to get a hold of some [place] from a friend at work and these apparently did not help either. PFSH PFS Home Medications cyclobenzaprine 10 mg tablet 10 mg PO TID PRN Muscle Spasm #20 TABLETS 08/09/22 [Rx Last Taken Unknown] naproxen 500 mg tablet (Naprosyn) 500 mg PO BID PRN pain #20 tabs 08/09/22 [Rx Last Taken Unknown] Allergy/AdvReac Type Severity Reaction Status Date / Time No Known Allergies Allergy Verified 08/09/22 14:42 Social History Smoking Status: Never smoker ROS ROS ED Constitutional Constitutional ED: Denies chills, fever(s) or sweats Eyes Eyes: Denies blurry vision or change in vision ENT ENT ED: Denies ear pain or sore throat Cardiovascular Cardiovascular: Denies chest pain, palpitations or racing heartbeat Respiratory/Chest Respiratory/Chest: Denies cough, dyspnea or sputum Gastrointestinal Gastrointestinal: Denies abdominal pain, constipation, diarrhea, nausea or vomiting Genitourinary Genitourinary ED: Denies dysuria, hematuria or urinary frequency Musculoskeletal Musculoskeletal: Reports other Details: Right hip pain ; Denies myalgias or neck pain Integumentary Denies abscess, Abrasions or rash Neurologic Neurologic: Denies headache(s), paresthesias or weakness Psychiatric Psychiatric: Denies anxiety, depression, suicidal ideation or suicidal thoughts Endocrine Endocrinology: Denies polydipsia or polyuria EXAM Physical Exam Const Vital Signs: 08/09/22 14:43 Temperature 97.7 F L Temperature Source Temporal Pulse Rate 86 Respiratory Rate 18 Blood Pressure 130/88 H Blood Pressure Mean 102 Pulse Ox 98 Oxygen Delivery Method Room Air Positive well nourished General Appearance ED: NAD HEENT normocephalic and atraumatic Eyes PERRL Resp normal respiratory effort and no retractions Auscultation: Negative for rales, rhonchi or wheezes Cardio regular rate and regular rhythm Extremity normal to inspection Extremity Narrative: Tenderness to palpation over greater trochanter on the right. No deformity. No rash or erythema. Neuro oriented x3 Sensorium / Orientation: alert Motor Exam: strength 5/5 throughout Psych mental status grossly normal Skin Lesions: no lesions Rashes: no rashes MDM MDM MDM Narrative Medical decision making narrative: Patient presenting with right hip pain which is somewhat chronic in nature. He is able to range the hip final believe it is septic joint. He is ambulatory. No erythema rash cellulitis. Differential includes arthritis, muscle strain. We will obtain an x-ray of the right hip stating that he is given a Toradol dose IM. X-ray of the right hip on my interpretation shows no acute fracture or subluxation. There are some mild degenerative changes. Patient was counseled on this. I will give him referral for orthopedics to follow-up. Discharged home in stable condition. Impression: 1. Right hip pain 2. Muscle strain Radiography Diagnostic Testing: Clinical Impression(s) from Imaging Studies Hip/Pelvis X-Ray 08/09/22 15:15 IMPRESSION: No definite acute or significant abnormality seen. Electronically Signed: Viraj Hand MD at 15:56 EDT , Discharge Plan Triage Chief Complaint: Lower Extremity Injury ED Provider: Chao Solomon Dx/Rx/DC Orders Instructions: ED Hip Strain Prescriptions: New naproxen [Naprosyn] 500 mg tablet 500 mg PO BID PRN (Reason: pain) Qty: 20 0RF cyclobenzaprine 10 mg tablet 10 mg PO TID PRN (Reason: Muscle Spasm) Qty: 20 0RF Primary Care Provider: Care Physician,No Primary Referrals: Jonnathan Chino MD [Med Staff - Active Staff] - 3-5 Days Care Physician,No Primary [Primary Care Provider] - Disposition Disposition: Home, Self Care
--- NOTE | 2022-08-09 15:15 | RAD_ITS ---
STUDY: X-RAY - PELVIS AND RIGHT HIP REASON FOR EXAM: Male, 61 years old. hip pain TECHNIQUE: 3 views of the pelvis and hip. COMPARISON: None. FINDINGS: There is a non-specific bowel gas pattern. Normal visualized soft tissue structures. Normal bilateral iliac wings, sacroiliac joints and visualized sacrum. Normal bilateral superior and inferior pubic rami. There are degenerative changes of the pubic symphysis with sclerosis. Normal bilateral ischial tuberosities. Normal visualized femoral head. Normal acetabulum. Normal hip joint. RAD/HIP, UNI W/ Pelvis 2-3 Views IMPRESSION: No definite acute or significant abnormality seen. Electronically Signed: Viraj Hand MD at 15:56 EDT ,
[2022-08-09] MEDS: Ketorolac 15 MG/ML Vial IM (15:19)
== END 2022-08-09 16:32 | disposition home or self-care (01) ==
PROVIDERS: Emergency Provider Student in an Organized Health Care Education/Training Program; Visit Provider Student in an Organized Health Care Education/Training Program
DX: S76.011A Strain of muscle, fascia and tendon of right hip, initial encounter (principal); G89.29 Other chronic pain; X50.0XXA Overexertion from strenuous movement or load, initial encounter; Y99.0 Civilian activity done for income or pay
CPT/HCPCS: 73502; 96372; 99282